=== PATIENT | male | born 1975 | race Caucasian/White ===

== ENCOUNTER 2018-09-19 20:27 | Emergency (ER) | payer BC, SELFPAY ==
[2018-09-19] VITALS (37 sets, daily range): BP systolic 112–156; BP diastolic 64–107; PULSE 52–88; RESP 0–25; TEMP 37; O2SAT 92–100
[2018-09-19] MEDS: Normal Saline 1,000 ML 1000 ML IV (20:35)
--- NOTE | 2018-09-19 20:37 | DI.CT_ITS ---
SYMPTOM/DIAGNOSIS: FALL, LT FLANK PAIN, SYNCOPE CT CHEST, ABDOMEN AND PELVIS: Routine examination was performed. No priors. CT ABDOMEN AND PELVIS: There is diffuse decreased attenuation of the liver, consistent with hepatic steatosis. No evidence of an hepatic laceration or mass is seen. The portal and superior mesenteric veins are patent The gallbladder is negative as are the bile ducts. The pancreas, spleen and adrenal glands are unremarkable. The kidneys show normal and symmetric enhancement. No solid renal mass, obstruction or laceration is seen. The ureters are unremarkable as is the urinary bladder. The reproductive organs are grossly unremarkable. The abdominal aorta is intact. No retroperitoneal hematoma is seen. Incidental note is made of a circumaortic left renal vein. No significant abdominal or pelvic adenopathy, ascites or pneumoperitoneum is seen. The bowel is unremarkable. No fracture is identified. There is a 9 x 3.5 x 10 cm subcutaneous soft tissue hematoma overlying the left gluteal muscles. There is infiltration of the surrounding subcutaneous tissues in the left gluteal region. IMPRESSION: 1. Soft tissue hematoma in the subcutaneous region overlying the left gluteal muscles measuring up to 10 cm in diameter with surrounding subcutaneous edema. 2. No evidence of abdominal or pelvic organ injury or fracture. CT CHEST: The thoracic aorta is intact and normal in size. Heart size is within normal limits No pericardial effusion seen. No significant mediastinal or hilar adenopathy is present. No pleural effusion or pneumothorax is identified. The tracheobronchial tree is unremarkable. The lungs are clear. No displaced fracture is identified. IMPRESSION: No evidence of thoracic injury.
--- NOTE | 2018-09-19 20:37 | DI.CT_ITS ---
SYMPTOM/DIAGNOSIS: FALL, LT FLANK PAIN, SYNCOPE CT BRAIN: Noncontrast. No priors. A noncontrast cranial CT was performed. The ventricular system is normal in appearance. There is no evidence of an intracranial mass lesion. There is no evidence of a subdural or epidural hematoma. No focal areas of decreased attenuation are seen. CONCLUSION: Normal noncontrast Cranial CT. CT CERVICAL SPINE: Multiple contiguous axial images of the cervical spine were obtained. Sagittal and coronal reformatted images were evaluated on the [employer] workstation. There are no priors for comparison. There is normal alignment. No acute fractures or subluxations are seen. The pre-vertebral soft tissues are unremarkable. IMPRESSION: No acute fracture or subluxation of the cervical spine.
--- NOTE | 2018-09-19 20:39 | W.ED.GENAD ---
Discharge Plan Disposition Patient Disposition: HOME Condition: Improving Discharge Details Chief Complaint: Trauma Clinical Impression: Traumatic hematoma of buttock Reason For Visit: JUNIOR Primary Care Provider: V[facility] ED Provider: Luther Garcia Home Meds and New Rx's Prescriptions: No Action No Known Home Meds RF: 0 Discharge Instructions Instructions: Hematoma (ED) Additional Instructions: We will ask our care management team to assist in making of a follow-up appointment in surgery clinic as we discussed. Please return for any acute concerns. May apply ice to reduce pain and swelling. Tylenol as needed for pain. Medical Decision Making 43-year-old male presents with fall down 4 stairs earlier in the day and resultant left flank pain. He separately had a syncopal episode after a school event this evening. He arrives mildly diaphoretic and pale in appearance. His vital signs are normal. He has a palpable mass in his left gluteus muscle. Differential diagnosis includes arrhythmia, ACS, visceral injury and or internal bleeding. Patient was placed on a equipment monitor phototypesetting, IV access established, given fluid bolus, referred for laboratory testing and CT images. Laboratories are reassuring, notable for stress demargination of the white blood cell count. CT is without significant finding with the exception of left gluteus muscle 5 x 5 x 9 cm hematoma without active extravasation. Patient observed and repeat CBC and troponin obtained. Hematocrit stable and consistent with mild dilution due to administered fluids. Patient stable for discharge home. Will refer him to surgery clinic for follow-up. Did discuss with he and his the risk of the development of myositis ossificans. He may require physical therapy to ensure complete resolution of his gluteal hematoma. Lab Data Lab results reviewed: Yes I reviewed the patient's lab results. Laboratory Results - last 24 hr 09/19/18 09/19/18 09/19/18 20:40 20:40 21:06 WBC 14.33 H RBC 4.58 Hgb 13.8 Hct 39.8 L MCV 86.9 MCH 30.1 MCHC 34.7 RDW 13.0 Plt Count 261 MPV 9.9 Immature Gran % 0.4 Neutrophils % 71.9 Lymphocytes % 18.6 Monocytes % 8.0 Eosinophils % 0.8 Basophils % 0.3 Absolute Neutrophils 10.30 H Absolute Lymphocytes 2.67 Absolute Monocytes 1.15 H Absolute Eosinophils 0.11 Absolute Basophils 0.04 Sodium 140 Potassium 3.5 Chloride 104 Carbon Dioxide 28.4 Anion Gap 7.6 BUN 25 H Creatinine 0.96 Estimated GFR/1.73 m2 >= 60.00 Glucose 118 H Calcium 8.6 Total Bilirubin 0.4 AST 29 ALT 67 Alkaline Phosphatase 48 Troponin I < 0.02 Total Protein 6.8 Albumin 3.7 Patient ABO/Rh AB Positive Antibody Screen Negative ECG Data Interpretation: Normal sinus rhythm, rate approximately 60+. Narrow QRS. No ST segment elevation HPI General Mode of arrival: EMS. Date/Time Provider Initiated Documentation: 09/19/18 20:37. Limitations to Documentation: no limitations. Information obtained by: patient and EMS. History of Present Illness 43 year old M presents to the emergency department with the chief complaint of Left flank pain after fall, subsequent syncope, described as moderate, Quality is described as aching, and is localized to the abdomen and left. Patient reports no radiation. and it has been now resolved. No relieving factors improve symptom(s), No exacerbating factors reported . Patient notes syncope. HPI Narrative: 43-year-old male presents via EMS. He states that earlier today he slipped and fell on his left flank down 4 stairs. He did not have a loss of consciousness. He denies striking his head. Denies having any neck, back, extremity injury. He states he developed dull, achy left flank pain that was fairly constant through the day. After a school meeting he had abrupt episode of feeling graying of his vision and then syncope with diaphoresis and nausea. He was given an antiemetic and fentanyl by EMS with improvement. He arrives states to me that he is feeling better. Related Data Home Medications Medication Instructions Recorded Confirmed Unknown [No Known Home Meds] 09/19/18 09/19/18 Allergies Allergy/AdvReac Type Severity Reaction Status Date / Time No Known Allergies Allergy Unverified 09/19/18 20:40 General Stated Complaint: Trauma JUWAN: 2 Review of Systems Review of Systems 8 systems reviewed and otherwise negative [facility] Social History Smoking/Tobacco Use Status: Never Exam Narrative Exam Narrative: GEN: awake, alert, oriented 3. Pleasant, well groomed, interactive. HEAD: Normocephalic, atraumatic ENT: Mucous membranes moist, oropharynx unremarkable, External ear exam unremarkable EYES: PERRL, EOMI NECK: Full ROM, no CARINA, no menigismus CHEST/RESP: Nontender, clear to auscultation bilateral, no wheeze/rhonchi/rales CARDIOVASCULAR: RRR, no murmur, rub mariposa. 2+ Rad pulse bilateral ABDOMEN: Soft, nontender, no mass. +Bowel sounds. Minimal tenderness left flank. The left gluteal muscle has a approximately 5 x 10 cm area of firm and tender mass EXT: Full ROM, no edema, no rash Neuro: Grossly normal neurologic exam, conversant, interactive. Psych: Speech fluent, thoughts congruent, affect normal Course Vital Signs Temperature 37.0 C 09/19/18 20:34 Pulse 66 09/19/18 20:34 Respiratory Rate 24 09/19/18 20:34 Blood Pressure 143/87 H 09/19/18 20:34 Pulse Oximetry 96 09/19/18 20:34 Temperature 37.0 C 09/19/18 20:34 Temperature Source Tympanic 09/19/18 20:34 Pulse 66 09/19/18 20:34 Respiratory Rate 24 09/19/18 20:34 Respiratory Effort Non-Labored 09/19/18 20:37 Blood Pressure 143/87 H 09/19/18 20:34 Blood Pressure Position Sitting 09/19/18 20:34 Pulse Oximetry 96 09/19/18 20:34 Oxygen Delivery Method Room Air 09/19/18 20:34 Oxygen Flow Rate 0 09/19/18 20:34 Pain Level 5 09/19/18 20:34
--- NOTE | 2018-09-19 20:42 | ED.GENADUL_ITS ---
Discharge Plan Disposition Patient Disposition: HOME Condition: Improving Discharge Details Chief Complaint: Trauma Clinical Impression: Traumatic hematoma of buttock Reason For Visit: JUNIOR Primary Care Provider: V[facility] ED Provider: Luther Garcia Home Meds and New Rx's Prescriptions: No Action No Known Home Meds RF: 0 Discharge Instructions Instructions: Hematoma (ED) Additional Instructions: We will ask our care management team to assist in making of a follow-up appointment in surgery clinic as we discussed. Please return for any acute concerns. May apply ice to reduce pain and swelling. Tylenol as needed for pain. Medical Decision Making 43-year-old male presents with fall down 4 stairs earlier in the day and resultant left flank pain. He separately had a syncopal episode after a school event this evening. He arrives mildly diaphoretic and pale in appearance. His vital signs are normal. He has a palpable mass in his left gluteus muscle. Differential diagnosis includes arrhythmia, ACS, visceral injury and or internal bleeding. Patient was placed on a classroom monitor, IV access established, given fluid bolus, referred for laboratory testing and CT images. Laboratories are reassuring, notable for stress demargination of the white blood cell count. CT is without significant finding with the exception of left gluteus muscle 5 x 5 x 9 cm hematoma without active extravasation. Patient observed and repeat CBC and troponin obtained. Hematocrit stable and consistent with mild dilution due to administered fluids. Patient stable for discharge home. Will refer him to surgery clinic for follow-up. Did discuss with he and his the risk of the development of myositis ossificans. He may require physical therapy to ensure complete resolution of his gluteal hematoma. Lab Data Lab results reviewed: Yes I reviewed the patient's lab results. Laboratory Results - last 24 hr 09/19/18 09/19/18 09/19/18 20:40 20:40 21:06 WBC 14.33 H RBC 4.58 Hgb 13.8 Hct 39.8 L MCV 86.9 MCH 30.1 MCHC 34.7 RDW 13.0 Plt Count 261 MPV 9.9 Immature Gran % 0.4 Neutrophils % 71.9 Lymphocytes % 18.6 Monocytes % 8.0 Eosinophils % 0.8 Basophils % 0.3 Absolute Neutrophils 10.30 H Absolute Lymphocytes 2.67 Absolute Monocytes 1.15 H Absolute Eosinophils 0.11 Absolute Basophils 0.04 Sodium 140 Potassium 3.5 Chloride 104 Carbon Dioxide 28.4 Anion Gap 7.6 BUN 25 H Creatinine 0.96 Estimated GFR/1.73 m2 >= 60.00 Glucose 118 H Calcium 8.6 Total Bilirubin 0.4 AST 29 ALT 67 Alkaline Phosphatase 48 Troponin I < 0.02 Total Protein 6.8 Albumin 3.7 Patient ABO/Rh AB Positive Antibody Screen Negative ECG Data Interpretation: Normal sinus rhythm, rate approximately 60+. Narrow QRS. No ST segment elevation HPI General Mode of arrival: EMS . Date/Time Provider Initiated Documentation: 09/19/18 20:37 . Limitations to Documentation: no limitations . Information obtained by: patient and EMS . History of Present Illness 43 year old M presents to the emergency department with the chief complaint of Left flank pain after fall, subsequent syncope, described as moderate, Quality is described as aching, and is localized to the abdomen and left. Patient reports no radiation. and it has been now resolved. No relieving factors improve symptom(s), No exacerbating factors reported . Patient notes syncope. HPI Narrative: 43-year-old male presents via EMS. He states that earlier today he slipped and fell on his left flank down 4 stairs. He did not have a loss of consciousness. He denies striking his head. Denies having any neck, back, extremity injury. He states he developed dull, achy left flank pain that was fairly constant through the day. After a school meeting he had abrupt episode of feeling graying of his vision and then syncope with diaphoresis and nausea. He was given an antiemetic and fentanyl by EMS with improvement. He arrives states to me that he is feeling better. Related Data Home Medications Medication Instructions Recorded Confirmed Unknown [No Known Home Meds] 09/19/18 09/19/18 Allergies Allergy/AdvReac Type Severity Reaction Status Date / Time No Known Allergies Allergy Unverified 09/19/18 20:40 General Stated Complaint: Trauma JUWAN: 2 Review of Systems Review of Systems 8 systems reviewed and otherwise negative [facility] Social History Smoking/Tobacco Use Status: Never Exam Narrative Exam Narrative: GEN: awake, alert, oriented 3. Pleasant, well groomed, interactive. HEAD: Normocephalic, atraumatic ENT: Mucous membranes moist, oropharynx unremarkable, External ear exam unremarkable EYES: PERRL, EOMI NECK: Full ROM, no CARINA, no menigismus CHEST/RESP: Nontender, clear to auscultation bilateral, no wheeze/rhonchi/rales CARDIOVASCULAR: RRR, no murmur, rub mariposa. 2+ Rad pulse bilateral ABDOMEN: Soft, nontender, no mass. +Bowel sounds. Minimal tenderness left flank. The left gluteal muscle has a approximately 5 x 10 cm area of firm and tender mass EXT: Full ROM, no edema, no rash Neuro: Grossly normal neurologic exam, conversant, interactive. Psych: Speech fluent, thoughts congruent, affect normal Course Vital Signs Temperature 37.0 C 09/19/18 20:34 Pulse 66 09/19/18 20:34 Respiratory Rate 24 09/19/18 20:34 Blood Pressure 143/87 H 09/19/18 20:34 Pulse Oximetry 96 09/19/18 20:34 Temperature 37.0 C 09/19/18 20:34 Temperature Source Tympanic 09/19/18 20:34 Pulse 66 09/19/18 20:34 Respiratory Rate 24 09/19/18 20:34 Respiratory Effort Non-Labored 09/19/18 20:37 Blood Pressure 143/87 H 09/19/18 20:34 Blood Pressure Position Sitting 09/19/18 20:34 Pulse Oximetry 96 09/19/18 20:34 Oxygen Delivery Method Room Air 09/19/18 20:34 Oxygen Flow Rate 0 09/19/18 20:34 Pain Level 5 09/19/18 20:34
[2018-09-19 20:51] LABS: Abs Immature Grans 0.06 k/cumm (0.0-0.09); Absolute Basophil Count 0.04 k/cumm (0.0-0.2); Absolute Eosinophil Count 0.11 k/cumm (0.0-0.7); Absolute Lymphocyte Count 2.67 k/cumm (1.2-3.4); Absolute Monocyte Count 1.15 k/cumm (0.11-0.7); Basophils % 0.3; Eosinophils % 0.8; HCT 39.8 % (40.0-50.0); HGB 13.8 g/dL (13.5-17.5); Immature Grans % 0.4; Lymphocytes % 18.6; Mean Corp. HGB Concentration 34.7 g/dL (32.0-36.0); Mean Corpuscular Hemoglobin 30.1 pg (27.0-33.0); Mean Corpuscular Volume 86.9 fL (80-95); Mean Platelet Volume 9.9 fL (8.0-11.0); Neutrophils % 71.9; Platelet Count 261 x1000/uL (130-400); RBC 4.58 m/cumm (4.50-6.00); White Blood Cell Count 14.33 k/cumm (4.4-10.8)
[2018-09-19 21:04] LABS: ALT 67 U/L (12-78); AST 29 U/L (15-37); Albumin 3.7 g/dL (3.4-5.0); Alkaline Phosphatase 48 U/L (46-116); Anion Gap 7.6 mmol/L (3-11); BUN 25 mg/dL (7-18); Bilirubin, Total 0.4 mg/dL (0.2-1.0); CO2 28.4 mmol/L (21.0-32.0); CREATININE 0.96 mg/dL (0.70-1.30); Calcium 8.6 mg/dL (8.5-10.1); Chloride 104 mmol/L (98-107); Glucose 118 mg/dL (70-100); Potassium 3.5 mmol/L (3.5-5.1); Sodium 140 mmol/L (136-145); Total Protein 6.8 g/dL (6.4-8.2); Troponin I < 0.02 ng/mL (0.00-0.06)
[2018-09-19] MEDS: Omnipaque 350 MG/ML 100 ML BTL IJ (21:11)
--- NOTE | 2018-09-19 22:08 | DI.VRAD_ITS ---
EXAM: CT Head Without Intravenous Contrast EXAM DATE/TIME: 09/19/2018 8:39 PM CLINICAL HISTORY: 43 years old, male; Injury or trauma; Fall; Initial encounter; Unconscious; Injury details: Fall lt flank pain syncope TECHNIQUE: Axial computed tomography images of the head/brain without intravenous contrast. All CT scans at this facility use at least one of these dose optimization techniques: automated exposure control; mA and/or kV adjustment per patient size (includes targeted exams where dose is matched to clinical indication); or iterative reconstruction. Coronal and sagittal reformatted images were created and reviewed. COMPARISON: No relevant prior studies available. FINDINGS: Brain: Normal. No hemorrhage. No significant white matter disease. No edema. Ventricles: Normal. No ventriculomegaly. Bones/joints: Normal. No acute fracture. Sinuses: Normal as visualized. No acute sinusitis. Mastoid air cells: Normal as visualized. No mastoid effusion. Soft tissues: Normal. IMPRESSION: No acute intracranial findings. EXAM: CT Cervical Spine Without Intravenous Contrast EXAM DATE/TIME: 09/19/2018 8:39 PM CLINICAL HISTORY: 43 years old, male; Injury or trauma; Fall; Initial encounter; Unconscious; Injury details: Fall lt flank pain syncope TECHNIQUE: Axial computed tomography images of the cervical spine without intravenous contrast. Coronal and sagittal reformatted images were created and reviewed. COMPARISON: No relevant prior studies available. FINDINGS: Vertebrae: No acute fracture. Normal alignment. Discs/Spinal canal/Neural foramina: No spinal stenosis. No neural foraminal narrowing. Soft tissues: Unremarkable. Lungs: Lung apices are normal. IMPRESSION: No acute fracture or malalignment in the cervical spine. Dictated and Authenticated by: Pat Ricardo MD. Ordering:ELENITA INGRAM MD
--- NOTE | 2018-09-19 22:22 | DI.VRAD_ITS ---
EXAM: CT Chest With Contrast EXAM DATE/TIME: 09/19/2018 8:39 PM CLINICAL HISTORY: 43 years old, male; Injury or trauma; Fall; Initial encounter; Unconscious TECHNIQUE: Axial computed tomography images of the chest with intravenous contrast. Coronal and sagittal reformatted images were created and reviewed. COMPARISON: No relevant prior studies available. FINDINGS: Lungs: Normal. No consolidation. No masses. Pleural space: Normal. No pneumothorax. No pleural effusion. Heart: Normal. No cardiomegaly. No pericardial effusion. Mediastinum: Trace soft tissue in anterior mediastinum, most likely represents residual thymic tissue. Aorta: Normal. No aortic aneurysm. Lymph nodes: Unremarkable. No enlarged lymph nodes. Bones/joints: Unremarkable. No acute fracture. Soft tissues: Unremarkable. IMPRESSION: No acute traumatic findings in the chest. EXAM: CT Abdomen and Pelvis With Intravenous Contrast EXAM DATE/TIME: 09/19/2018 8:39 PM CLINICAL HISTORY: 43 years old, male; Injury or trauma; Fall; Initial encounter; Unconscious TECHNIQUE: Axial computed tomography images of the abdomen and pelvis with intravenous contrast. Coronal and sagittal reformatted images were created and reviewed. CONTRAST: 100 ml of omni 350 administered intravenously. COMPARISON: No relevant prior studies available. FINDINGS: Lower thorax: No acute findings. ABDOMEN: Liver: Diffusely low attenuation of the liver with sparing around the gallbladder fossa in keeping with hepatic steatosis. Gallbladder and bile ducts: Normal. No calcified stones. No ductal dilation. Pancreas: Normal. No ductal dilation. Spleen: Normal. No splenomegaly. Adrenals: Normal. No mass. Kidneys and ureters: Normal. No hydronephrosis. Stomach and bowel: Mild diverticulosis without evidence of acute diverticulitis. Appendix: No evidence of appendicitis. PELVIS: Bladder: Unremarkable as visualized. Reproductive: Coarse calcifications within the prostate gland. ABDOMEN and PELVIS: Intraperitoneal space: Normal. No free air. No significant fluid collection. Bones/joints: No acute fracture. No dislocation. Soft tissues: There is infiltration of the left gluteal soft tissues in keeping with contusion in the setting of trauma. In addition, there is a subcutaneous soft tissue hematoma overlying the left gluteal muscles (series 7 image 100) measuring 9.1 x 3.5 x 9.7 cm. No evidence of active extravasation, noting that the timing of the study is not optimized to evaluate for active bleeding. Vasculature: Normal. No abdominal aortic aneurysm. Lymph nodes: Normal. No enlarged lymph nodes. IMPRESSION: 1. Hematoma in the left gluteal superficial soft tissues measuring up to 9.7 cm in greatest diameter with surrounding contusion/edema. No evidence of intra-abdominal traumatic injury. 2. Hepatic steatosis. Dictated and Authenticated by: Pat Ricardo MD. Ordering:ELENITA INGRAM MD
[2018-09-19] MEDS: Acetaminophen 500 MG TAB 1000 MG PO (22:34)
[2018-09-20] VITALS (7 sets, daily range): BP systolic 110–117; BP diastolic 60; PULSE 51–65; RESP 7–16; TEMP 36.4; O2SAT 93–97
[2018-09-20 00:27] LABS: HCT 36.2 % (40.0-50.0); HGB 12.7 g/dL (13.5-17.5); Mean Corp. HGB Concentration 35.1 g/dL (32.0-36.0); Mean Corpuscular Hemoglobin 30.5 pg (27.0-33.0); Mean Corpuscular Volume 86.8 fL (80-95); Mean Platelet Volume 9.6 fL (8.0-11.0); Platelet Count 224 x1000/uL (130-400); RBC 4.17 m/cumm (4.50-6.00); RBC Distribution Width 12.9 % (11.8-14.1); White Blood Cell Count 10.48 k/cumm (4.4-10.8)
[2018-09-20 00:43] LABS: Troponin I < 0.02 ng/mL (0.00-0.06)
== END 2018-09-20 01:09 | disposition home or self-care (01) ==
PROVIDERS: Emergency Provider Emergency Medicine; PCP Nurse Practitioner Adult Health
DX: S30.0XXA Contusion of lower back and pelvis, initial encounter (principal); R10.32 Left lower quadrant pain; R55 Syncope and collapse; W10.8XXA Fall (on) (from) other stairs and steps, initial encounter
CPT/HCPCS: 36415; 74177; 80053; 85027; 86850; 86900; 86901; 93005; 96360; 99285; 70450; 71260; 72125; 84484; 85025; 93010; 99284; J3490

== ENCOUNTER 2018-09-21 09:36 | Emergency (ER) | payer BC, SELFPAY ==
[2018-09-21 09:43] VITALS: BP 140/83; PULSE 65; RESP 16; TEMP 37.2; O2SAT 99
--- NOTE | 2018-09-21 10:07 | W.ED.GENAD ---
Discharge Plan Disposition Patient Disposition: HOME Condition: Improving Discharge Details Chief Complaint: Abd Prob Clinical Impression: Hematoma Primary Care Provider: Anisha Zepeda ED Provider: Johnathan Serrano Home Meds and New Rx's Prescriptions: New diclofenac potassium 50 mg tablet 50 mg PO Q8H PRN (Reason: pain) Qty: 10 RF: 0 Discharge Instructions Instructions: Hematoma (ED) Additional Instructions: Due to medication he received in the emergency department please do not take prescribed medication or ibuprofen and until 6 PM this evening. You may continue to take acetaminophen in this time as needed for discomfort. You may also apply ice to the area of bruising. Please return immediately for any new or significant change in your condition otherwise follow-up with general surgeon as scheduled for tomorrow. Referrals: Paulo Neal DO [ [facility] STAFF PHYSICIAN] - (As scheduled for tomorrow) Discharge Data Discharge Date/Time-TO BE ENTERED AT DEPARTURE: 09/21/18 11:41 Medical Decision Making Patient presenting to the emergency department for chief complaint of left flank pain and bruising. Patient states fall 2 days ago on stairs landing on his left hip and having some bruising. Couple hours afterwards he had a syncopal episode. Patient presented to the emergency department and had full evaluation and noted a significant hematoma otherwise negative workup. Patient significant other has noticed some spreading of the bruising today and called the surgeon's office whom recommended they immediately present to the emergency department. Patient states some mild malaise and nausea that he attributes to possible pain response but otherwise denies any further episodes of syncope. Patient denies any fever chills, change in bowel or bladder function, states normal p.o. intake, denies any further falls. Physical exam does show significant hematoma to left iliac crest and hip with some ecchymosis noted to buttock and upper thigh but otherwise abdomen is soft, only tenderness in the general area of hematoma, no CVA tenderness, normal bowel sounds. seems significantly concerned due to being told they had to come immediately to the emergency department by surgeon's office nursing staff. Patient is otherwise well and I feel that the spreading of the hematoma/ecchymosis is more due to gravity than any worsening of symptoms given fairly benign physical exam. Plan noted check labs and give ketorolac for pain control and see how patient responds. Will review patient's previous records. After review of previous medical records, current labs that show improvement in H&H, and no other worrisome findings laboratory [place] patient was reassessed. Patient states improvement in discomfort and overall feeling. I did show patient CT image and area of hematoma which is consistent with his area of ecchymosis. After this patient was significantly reassured and given soft abdomen with no splenic megaly, no CVA tenderness, no worrisome findings patient was agreeable to not performing repeat CT imaging which I do not feel is warranted at this time. Patient does state that they have an appointment scheduled for tomorrow to follow-up with Dr. Sal given size of hematoma and previous recommendation. I feel that this is reassuring and that patient needs no further workup at this time. Patient was strongly encouraged to return for any new or significant worsening of symptoms. Due to ketorolac improving patient's pain and overall symptoms better than the acetaminophen is taken patient was prescribed limited supply of diclofenac to take as needed. After discussion of diagnosis and plan of care patient has no further needs, questions, or concerns and states clear understanding to return to the emergency department for any worsening symptoms. Spoke with Dr. Sal in regards to patient's follow-up appointment tomorrow and he had no further recommendations and agreed with plan of care at this time. HPI General Mode of arrival: ambulatory. Date/Time Provider Initiated Documentation: 09/21/18 09:43. Limitations to Documentation: no limitations. Information obtained by: patient and RN notes reviewed. History of Present Illness 43 year old M presents to the emergency department with the chief complaint of Left flank pain, described as moderate, with intensity rated at 7. Quality is described as aching, and is localized to the abdomen and left. Patient started experiencing this day(s) (2) and it has been constant. No relieving factors improve symptom(s), Patient did receive the following treatments prior to arrival, other (Acetaminophen) Related Data Home Medications Medication Instructions Recorded Confirmed diclofenac potassium 50 mg PO Q8H PRN #10 tab 09/21/18 Previous Rx's Medication Instructions Recorded diclofenac potassium 50 mg PO Q8H PRN #10 tab 09/21/18 Allergies Allergy/AdvReac Type Severity Reaction Status Date / Time No Known Allergies Allergy Unverified 09/21/18 09:49 General Stated Complaint: Abd Prob JUWAN: 3 Review of Systems Constitutional Denies chills, Denies fever(s), Denies frequent falls and Reports malaise Cardiovascular Denies chest pain, Denies irregular heart rhythm and Denies dyspnea Respiratory Denies dyspnea Gastrointestinal Reports abdominal pain, Denies change in bowel habits, Denies constipation, Denies diarrhea, Reports nausea and Denies vomiting Genitourinary Denies hematuria, Denies difficulty urinating and Denies dysuria Integumentary/Breasts Reports unusual bruising Neurologic Denies frequent falls and Denies seizure-like activity [facility] Social History Smoking/Tobacco Use Status: Never Exam Const General: cooperative, no acute distress and not ill appearing Orientation: alert, awake and oriented x3 HENMT Mouth: moist mucous membranes Resp Effort & Inspection: normal respiratory effort, able to speak in complete sentences and no respiratory distress Cardio Rate: regular rate Rhythm: regular rhythm Heart Sounds: S1 normal and S2 normal GI Inspection: abdominal wall ecchymosis (left flank and hip) Palpation: soft, no hepatosplenomegaly, not firm, no masses, no pulsatile masses, not rigid, no splenomegaly and tender in the LLQ; not at McBurney's point, Herron's sign negative and Rovsing's sign negative Auscultation: normal bowel sounds Back/Spine/Pelvis Back: no CVA tenderness and No ecchymosis Skin General skin exam: no rashes or lesions noted Neuro General: alert, awake, oriented x3, moves all extremities and no focal motor deficits Sensory Exam: no sensory deficits noted Course Vital Signs Temperature 37.2 C 09/21/18 09:43 Pulse 65 09/21/18 09:43 Respiratory Rate 16 09/21/18 09:43 Blood Pressure 140/83 09/21/18 09:43 Pulse Oximetry 99 09/21/18 09:43 Temperature 37.2 C 09/21/18 09:43 Temperature Source Skin 09/21/18 09:43 Pulse 65 09/21/18 09:43 Respiratory Rate 16 09/21/18 09:43 Respiratory Effort 09/21/18 09:43 Blood Pressure 140/83 09/21/18 09:43 Blood Pressure Position Sitting 09/21/18 09:43 Pulse Oximetry 99 09/21/18 09:43 Oxygen Delivery Method Room Air 09/21/18 09:43 Oxygen Flow Rate 0 09/21/18 09:43 Pain Level 7 09/21/18 09:43
--- NOTE | 2018-09-21 10:15 | ED.GENADUL_ITS ---
Discharge Plan Disposition Patient Disposition: HOME Condition: Improving Discharge Details Chief Complaint: Abd Prob Clinical Impression: Hematoma Primary Care Provider: Anisha Zepeda ED Provider: Johnathan Serrano Home Meds and New Rx's Prescriptions: New diclofenac potassium 50 mg tablet 50 mg PO Q8H PRN (Reason: pain) Qty: 10 RF: 0 Discharge Instructions Instructions: Hematoma (ED) Additional Instructions: Due to medication he received in the emergency department please do not take prescribed medication or ibuprofen and until 6 PM this evening. You may continue to take acetaminophen in this time as needed for discomfort. You may also apply ice to the area of bruising. Please return immediately for any new or significant change in your condition otherwise follow-up with general surgeon as scheduled for tomorrow. Referrals: Paulo Neal DO [ [facility] STAFF PHYSICIAN] - (As scheduled for tomorrow) Discharge Data Discharge Date/Time-TO BE ENTERED AT DEPARTURE: 09/21/18 11:41 Medical Decision Making Patient presenting to the emergency department for chief complaint of left flank pain and bruising. Patient states fall 2 days ago on stairs landing on his left hip and having some bruising. Couple hours afterwards he had a syncopal episode. Patient presented to the emergency department and had full evaluation and noted a significant hematoma otherwise negative workup. Patient significant other has noticed some spreading of the bruising today and called the surgeon's office whom recommended they immediately present to the emergency department. Patient states some mild malaise and nausea that he attributes to possible pain response but otherwise denies any further episodes of syncope. Patient denies any fever chills, change in bowel or bladder function, states normal p.o. intake, denies any further falls. Physical exam does show significant hematoma to left iliac crest and hip with some ecchymosis noted to buttock and upper thigh but otherwise abdomen is soft, only tenderness in the general area of hematoma, no CVA tenderness, normal bowel sounds. seems significantly concerned due to being told they had to come immediately to the emergency department by surgeon's office nursing staff. Patient is otherwise well and I feel that the spreading of the hematoma/ecchymosis is more due to gravity than any worsening of symptoms given fairly benign physical exam. Plan noted check labs and give ketorolac for pain control and see how patient responds. Will review patient's previous records. After review of previous medical records, current labs that show improvement in H&H, and no other worrisome findings laboratory [place] patient was reassessed. Patient states improvement in discomfort and overall feeling. I did show patient CT image and area of hematoma which is consistent with his area of ecchymosis. After this patient was significantly reassured and given soft abdomen with no splenic megaly, no CVA tenderness, no worrisome findings patient was agreeable to not performing repeat CT imaging which I do not feel is warranted at this time. Patient does state that they have an appointment scheduled for tomorrow to follow-up with Dr. Sal given size of hematoma and previous recommendation. I feel that this is reassuring and that patient needs no further workup at this time. Patient was strongly encouraged to return for any new or significant worsening of symptoms. Due to ketorolac improving patient's pain and overall symptoms better than the acetaminophen is taken patient was prescribed limited supply of diclofenac to take as needed. After discussion of diagnosis and plan of care patient has no further needs, questions , or concerns and states clear understanding to return to the emergency department for any worsening symptoms. Spoke with Dr. Sal in regards to patient's follow-up appointment tomorrow and he had no further recommendations and agreed with plan of care at this time. HPI General Mode of arrival: ambulatory . Date/Time Provider Initiated Documentation: 09/21/18 09:43 . Limitations to Documentation: no limitations . Information obtained by: patient and RN notes reviewed . History of Present Illness 43 year old M presents to the emergency department with the chief complaint of Left flank pain, described as moderate, with intensity rated at 7. Quality is described as aching, and is localized to the abdomen and left. Patient started experiencing this day(s) (2) and it has been constant. No relieving factors improve symptom(s), Patient did receive the following treatments prior to arrival, other (Acetaminophen) Related Data Home Medications Medication Instructions Recorded Confirmed diclofenac potassium 50 mg PO Q8H PRN #10 tab 09/21/18 Previous Rx's Medication Instructions Recorded diclofenac potassium 50 mg PO Q8H PRN #10 tab 09/21/18 Allergies Allergy/AdvReac Type Severity Reaction Status Date / Time No Known Allergies Allergy Unverified 09/21/18 09:49 General Stated Complaint: Abd Prob JUWAN: 3 Review of Systems Constitutional Denies chills, Denies fever(s), Denies frequent falls and Reports malaise Cardiovascular Denies chest pain, Denies irregular heart rhythm and Denies dyspnea Respiratory Denies dyspnea Gastrointestinal Reports abdominal pain, Denies change in bowel habits, Denies constipation, Denies diarrhea, Reports nausea and Denies vomiting Genitourinary Denies hematuria, Denies difficulty urinating and Denies dysuria Integumentary/Breasts Reports unusual bruising Neurologic Denies frequent falls and Denies seizure-like activity [facility] Social History Smoking/Tobacco Use Status: Never Exam Const General: cooperative, no acute distress and not ill appearing Orientation: alert, awake and oriented x3 HENMT Mouth: moist mucous membranes Resp Effort & Inspection: normal respiratory effort, able to speak in complete sentences and no respiratory distress Cardio Rate: regular rate Rhythm: regular rhythm Heart Sounds: S1 normal and S2 normal GI Inspection: abdominal wall ecchymosis (left flank and hip) Palpation: soft, no hepatosplenomegaly, not firm, no masses, no pulsatile masses , not rigid, no splenomegaly and tender in the LLQ; not at McBurney's point, Herron's sign negative and Rovsing's sign negative Auscultation: normal bowel sounds Back/Spine/Pelvis Back: no CVA tenderness and No ecchymosis Skin General skin exam: no rashes or lesions noted Neuro General: alert, awake, oriented x3, moves all extremities and no focal motor deficits Sensory Exam: no sensory deficits noted Course Vital Signs Temperature 37.2 C 09/21/18 09:43 Pulse 65 09/21/18 09:43 Respiratory Rate 16 09/21/18 09:43 Blood Pressure 140/83 09/21/18 09:43 Pulse Oximetry 99 09/21/18 09:43 Temperature 37.2 C 09/21/18 09:43 Temperature Source Skin 09/21/18 09:43 Pulse 65 09/21/18 09:43 Respiratory Rate 16 09/21/18 09:43 Respiratory Effort 09/21/18 09:43 Blood Pressure 140/83 09/21/18 09:43 Blood Pressure Position Sitting 09/21/18 09:43 Pulse Oximetry 99 09/21/18 09:43 Oxygen Delivery Method Room Air 09/21/18 09:43 Oxygen Flow Rate 0 09/21/18 09:43 Pain Level 7 09/21/18 09:43
[2018-09-21] MEDS: Ketorolac 15 MG/ML VIAL IVP (10:17)
[2018-09-21 10:26] LABS: Abs Immature Grans 0.03 k/cumm (0.0-0.09); Absolute Basophil Count 0.04 k/cumm (0.0-0.2); Absolute Eosinophil Count 0.12 k/cumm (0.0-0.7); Absolute Lymphocyte Count 1.74 k/cumm (1.2-3.4); Absolute Monocyte Count 0.63 k/cumm (0.11-0.7); Absolute Neutrophil Count 4.56 k/cumm (1.2-6.7); Basophils % 0.6; Eosinophils % 1.7; HCT 38.1 % (40.0-50.0); HGB 13.3 g/dL (13.5-17.5); Immature Grans % 0.4; Lymphocytes % 24.4; Mean Corp. HGB Concentration 34.9 g/dL (32.0-36.0); Mean Corpuscular Hemoglobin 30.3 pg (27.0-33.0); Mean Corpuscular Volume 86.8 fL (80-95); Monocytes % 8.8; Neutrophils % 64.1; Platelet Count 238 x1000/uL (130-400); RBC 4.39 m/cumm (4.50-6.00); RBC Distribution Width 12.9 % (11.8-14.1); White Blood Cell Count 7.12 k/cumm (4.4-10.8)
[2018-09-21 10:47] LABS: ALT 58 U/L (12-78); AST 26 U/L (15-37); Albumin 3.4 g/dL (3.4-5.0); Alkaline Phosphatase 48 U/L (46-116); Anion Gap 5.6 mmol/L (3-11); BUN 13 mg/dL (7-18); Bilirubin, Total 0.5 mg/dL (0.2-1.0); CO2 30.4 mmol/L (21.0-32.0); CREATININE 0.89 mg/dL (0.70-1.30); Calcium 8.6 mg/dL (8.5-10.1); Chloride 103 mmol/L (98-107); Glucose 114 mg/dL (70-100); Potassium 3.6 mmol/L (3.5-5.1); Sodium 139 mmol/L (136-145); Total Protein 6.8 g/dL (6.4-8.2)
[2018-09-21 11:40] VITALS: BP 122/75; PULSE 67; RESP 16; TEMP 37.2; O2SAT 98
== END 2018-09-21 11:42 | disposition home or self-care (01) ==
PROVIDERS: Emergency Provider Nurse Practitioner Family; PCP Nurse Practitioner Adult Health
DX: S70.02XA Contusion of left hip, initial encounter (principal); S30.0XXA Contusion of lower back and pelvis, initial encounter; W10.8XXA Fall (on) (from) other stairs and steps, initial encounter
CPT/HCPCS: 36415; 80053; 96374; 99284; 85025; J1885

== ENCOUNTER 2018-09-27 17:21 | Emergency (ER) | payer BC, SELFPAY ==
[2018-09-27 17:27] VITALS: BP 156/95; PULSE 63; RESP 14; TEMP 37.6; O2SAT 98
--- NOTE | 2018-09-27 17:49 | W.ED.GENAD ---
Discharge Plan Disposition Patient Disposition: HOME Condition: Fair Discharge Details Chief Complaint: Nk/Back Pain Clinical Impression: Acute neck pain, Muscle spasm Primary Care Provider: Anisha Zepeda ED Provider: Lisa Ramesh Home Meds and New Rx's Prescriptions: New cyclobenzaprine 10 mg tablet 10 mg PO TID PRN (Reason: muscle spasm) Qty: 10 RF: 0 No Action ibuprofen 200 mg Capsule 200 - 800 mg PO PRN PRNRF: 0 Discharge Instructions Instructions: Muscle Spasm (ED), Neck Pain (ED) Additional Instructions: Encourage hydration. Gentle stretching and frequent ambulation. Tylenol and/or ibuprofen as needed for discomfort. You may try topical agents such as Salonpas or Lidoderm patches to help with discomfort. Flexeril as prescribed to help with muscle spasm. Please follow-up with primary care as soon as possible, please call them tomorrow to schedule appointment. If you develop weakness in your extremities, fever/chills, increased pain, change in bladder or bowel habit, sensory changes in your lower extremities or other new/worsening symptoms please seek care urgently once again. Referrals: Anisha Zepeda [Primary Care Provider] - Discharge Data Discharge Date/Time-TO BE ENTERED AT DEPARTURE: 09/27/18 20:28 Medical Decision Making Patient is a 43-year-old male presenting today with chief complaint of neck pain. Patient was seen here 2 weeks ago after a fall. At that time, the patient had fallen down 4 steps. Came in few hours later after suffering a syncopal episode. Holt scan had been performed at that time. Exam was concerning for hematoma over the left hip. He feels that hematoma has been healing well. Denies any fevers or chills. Has not been physically exerting himself. No trauma since then. States that he had insidious onset of neck pain this afternoon. On exam, the pain seems to be quite lateral, equal bilaterally with associated muscle tension. No midline tenderness. Full range of motion. Spurling's is normal. He is also endorsing tingling in the bilateral hands. However, neuro exam is intact with no objective findings noted. Two-point discrimination is intact, strength is equal bilaterally. Discussed these findings with the patient. He was concerned that this may have been associated with the fall. However, given the length of time that has elapsed since his fall, I am not suspicious for neck injury at this time particularly has had a normal CT of his cervical spine. Will treat patient's pain with Toradol and Valium. Discussed plan with the patient. He denies any recent illness. Vital signs within normal limits. He appears nontoxic Patient reports the pain is improved after Toradol and Valium. However, he reports that the tingling has persisted. Again, no deficit is noted on neuro exam. Discussed case with Dr. Mcgowan. As the patient did have a recent CT, I do not feel that repeat imaging is appropriate particularly as he has not had any injury since then. She agrees to this assessment. Patient may need an outpatient MRI. At this time of the evening, MRI is not available. Without any neurologic deficit noted on exam, I do not feel the transfer of this patient is appropriate at this time. I have asked that he follow-up with his primary care tomorrow. We will augment his pain medication is received thus far with Tylenol. We discussed new/worsening symptoms, in particular neurologic deficits and signs of infection, and when to seek care urgently once again. All of his questions and concerns were addressed and he is in agreement with plan peer Had initially offered the patient something stronger for his discomfort but he declined. However, at the time of discharge, he is requesting stronger medication from nursing staff. Patient will be prescribed oxycodone for tonight. We did discuss risks benefits of this medication. Again, we reviewed narcotic safety usage as well as strict return precautions. All questions and concerns were addressed and he is in agreement this plan. Will contact his primary care provider tomorrow morning to schedule follow-up as soon as possible. [facility] Mode of arrival: ambulatory. Date/Time Provider Initiated Documentation: 09/27/18 17:49. Limitations to Documentation: no limitations. Information obtained by: patient and family. History of Present Illness 43 year old M presents to the emergency department with the chief complaint of Neck pain, described as moderate, with intensity rated at 6. Quality is described as aching, and is localized to the neck. Patient reports no radiation. Patient started experiencing this hour(s) (Began at 1pm) and it has been constant. No relieving factors improve symptom(s), No exacerbating factors reported . Patient notes other; denies chest pain, cough, fever/chills, headaches, loss of appetite, nausea/vomiting, rash and shortness of breath. Patient did receive the following treatments prior to arrival, none Related Data Home Medications Medication Instructions Recorded Confirmed cyclobenzaprine 10 mg PO TID PRN #10 tab 09/27/18 09/28/18 ibuprofen 200 - 800 mg PO PRN PRN 09/28/18 09/28/18 Previous Rx's Medication Instructions Recorded cyclobenzaprine 10 mg PO TID PRN #10 tab 09/27/18 Allergies Allergy/AdvReac Type Severity Reaction Status Date / Time No Known Allergies Allergy Verified 09/28/18 11:34 General Stated Complaint: Nk/Back Pain JUWAN: 3 Review of Systems Constitutional Reports as per HPI, Denies headache(s) and Denies weakness ENT Denies vertigo and Denies headache(s) Cardiovascular Reports as per HPI and Denies syncope Respiratory Reports as per HPI Gastrointestinal Reports as per HPI, Denies abdominal pain, Denies change in stool character, Denies nausea and Denies vomiting Genitourinary Denies system reviewed and no additional complaints, except as docu (Denies any change in urinary habits) Musculoskeletal Reports as per HPI, Denies numbness and Reports tingling Integumentary/Breasts Reports as per HPI and Denies rash Neurologic Reports as per HPI, Denies vertigo, Denies syncope, Denies headache(s), Denies numbness, Denies radicular pain, Reports tingling, Denies tremor(s) and Denies weakness Exam Const General: cooperative, healthy appearing, comfortable, no acute distress, well developed and well groomed Nutritional Appearance: average body habitus and well nourished Orientation: alert, awake and oriented x3 HENMT Head: normal to inspection, normocephalic and atraumatic Ears: hearing grossly normal bilaterally Mouth: oral mucosae normal, lip normal and tongue normal Teeth and gingiva: dentition normal Throat: posterior oropharynx normal Eyes General: appearance normal, both eyes and all related structures Neck Neck: full ROM, no lymphadenopathy, no meningeal signs, trachea midline, supple and tender (No midline tenderness. Patient does have tenderness along the lateral aspect of the neck, this area is noted to be tight consistent with muscle spasm. No step-off is palpable. Full range of motion with no pain elicited per) Thyroid: thyroid normal Resp Effort & Inspection: normal respiratory effort, able to speak in complete sentences and no respiratory distress Auscultation: clear to auscultation bilaterally, no rales, no rhonchi and no wheezes Cardio Rate: regular rate Rhythm: regular rhythm Heart Sounds: S1 normal and S2 normal Back/Spine/Pelvis Back: no CVA tenderness Cervical Spine: normal cervical lordosis and cervical ROM normal Thoracic/Lumbar Spine: thoracic and lumbar spine normal to inspection Skin General skin exam: no rashes or lesions noted Trauma: no lacerations or abrasions Neuro General: alert, awake, oriented x3, gait normal, tone normal, moves all extremities and deep tendon reflexes 2+ bilaterally Cranial Nerves: CN's II-XI intact bilaterally Cognition: normal cognition Speech: speech normal Gait: normal gait Motor: muscle tone normal throughout, strength 5/5 throughout, no pronator drift, no movement abnormalities noted and no fasciculations Sensory Exam: no sensory deficits noted (Two-point discrimination is not act) Coordination: [id number] test normal, [id number] test normal and rapid alternating movement UE normal Extrem General: normal to inspection, full ROM and normal capillary refill Psych Appearance: grossly normal and well kempt Mental Status: mental status grossly normal Speech and Movement: speech and movement normal Course Vital Signs Temperature 37.6 C H 09/27/18 17:27 Pulse 63 09/27/18 17:27 Respiratory Rate 14 09/27/18 17:27 Blood Pressure 156/95 H 09/27/18 17:27 Pulse Oximetry 98 09/27/18 17:27 Temperature 37.6 C H 09/27/18 17:27 Temperature Source Skin 09/27/18 17:27 Pulse 63 09/27/18 17:27 Respiratory Rate 14 09/27/18 17:27 Respiratory Effort 09/27/18 17:31 Blood Pressure 156/95 H 09/27/18 17:27 Blood Pressure Position Sitting 09/27/18 17:27 Pulse Oximetry 98 09/27/18 17:27 Oxygen Delivery Method Room Air 09/27/18 17:27 Oxygen Flow Rate 0 09/27/18 17:27 Pain Level 8 09/27/18 17:35
[2018-09-27] MEDS: Diazepam 5 MG TAB PO (19:10)
[2018-09-27] MEDS: Ketorolac 30 MG/ML VIAL IM (19:24)
[2018-09-27] MEDS: Lidocaine 5% Patch 1 PATCH TP (19:25)
[2018-09-27] MEDS: Cyclobenzaprine 10 MG TAB 20 MG PO (20:05)
[2018-09-27 20:08] VITALS: BP 138/92; PULSE 58; RESP 14; TEMP 36.7; O2SAT 98
[2018-09-27] MEDS: Acetaminophen 500 MG TAB 1000 MG PO (20:12)
[2018-09-27] MEDS: oxyCODONE 5 MG TAB 10 MG PO (20:25)
[2018-09-27] MEDS: oxyCODONE 5 MG TAB PO (20:25)
--- NOTE | 2018-09-28 20:46 | ED.GENADUL_ITS ---
Discharge Plan Disposition Patient Disposition: HOME Condition: Fair Discharge Details Chief Complaint: Nk/Back Pain Clinical Impression: Acute neck pain, Muscle spasm Primary Care Provider: Anisha Zepeda ED Provider: Lisa Ramesh Home Meds and New Rx's Prescriptions: New cyclobenzaprine 10 mg tablet 10 mg PO TID PRN (Reason: muscle spasm) Qty: 10 RF: 0 No Action ibuprofen 200 mg Capsule 200 - 800 mg PO PRN PRNRF: 0 Discharge Instructions Instructions: Muscle Spasm (ED), Neck Pain (ED) Additional Instructions: Encourage hydration. Gentle stretching and frequent ambulation. Tylenol and/ or ibuprofen as needed for discomfort. You may try topical agents such as Salonpas or Lidoderm patches to help with discomfort. Flexeril as prescribed to help with muscle spasm. Please follow-up with primary care as soon as possible, please call them tomorrow to schedule appointment. If you develop weakness in your extremities, fever/chills, increased pain, change in bladder or bowel habit, sensory changes in your lower extremities or other new/ worsening symptoms please seek care urgently once again. Referrals: Anisha Zepeda [Primary Care Provider] - Discharge Data Discharge Date/Time-TO BE ENTERED AT DEPARTURE: 09/27/18 20:28 Medical Decision Making Patient is a 43-year-old male presenting today with chief complaint of neck pain. Patient was seen here 2 weeks ago after a fall. At that time, the patient had fallen down 4 steps. Came in few hours later after suffering a syncopal episode. Holt scan had been performed at that time. Exam was concerning for hematoma over the left hip. He feels that hematoma has been healing well. Denies any fevers or chills. Has not been physically exerting himself. No trauma since then. States that he had insidious onset of neck pain this afternoon. On exam, the pain seems to be quite lateral, equal bilaterally with associated muscle tension. No midline tenderness. Full range of motion. Spurling's is normal. He is also endorsing tingling in the bilateral hands. However, neuro exam is intact with no objective findings noted. Two-point discrimination is intact, strength is equal bilaterally. Discussed these findings with the patient. He was concerned that this may have been associated with the fall. However, given the length of time that has elapsed since his fall, I am not suspicious for neck injury at this time particularly has had a normal CT of his cervical spine. Will treat patient's pain with Toradol and Valium. Discussed plan with the patient. He denies any recent illness. Vital signs within normal limits. He appears nontoxic Patient reports the pain is improved after Toradol and Valium. However, he reports that the tingling has persisted. Again, no deficit is noted on neuro exam. Discussed case with Dr. Mcgowan. As the patient did have a recent CT, I do not feel that repeat imaging is appropriate particularly as he has not had any injury since then. She agrees to this assessment. Patient may need an outpatient MRI. At this time of the evening, MRI is not available. Without any neurologic deficit noted on exam, I do not feel the transfer of this patient is appropriate at this time. I have asked that he follow-up with his primary care tomorrow. We will augment his pain medication is received thus far with Tylenol. We discussed new/worsening symptoms, in particular neurologic deficits and signs of infection, and when to seek care urgently once again. All of his questions and concerns were addressed and he is in agreement with plan peer Had initially offered the patient something stronger for his discomfort but he declined. However, at the time of discharge, he is requesting stronger medication from nursing staff. Patient will be prescribed oxycodone for tonight. We did discuss risks benefits of this medication. Again, we reviewed narcotic safety usage as well as strict return precautions. All questions and concerns were addressed and he is in agreement this plan. Will contact his primary care provider tomorrow morning to schedule follow-up as soon as possible. [facility] Mode of arrival: ambulatory . Date/Time Provider Initiated Documentation: 09/27/18 17:49 . Limitations to Documentation: no limitations . Information obtained by: patient and family . History of Present Illness 43 year old M presents to the emergency department with the chief complaint of Neck pain, described as moderate, with intensity rated at 6. Quality is described as aching, and is localized to the neck. Patient reports no radiation. Patient started experiencing this hour(s) (Began at 1pm) and it has been constant. No relieving factors improve symptom(s), No exacerbating factors reported . Patient notes other; denies chest pain, cough, fever/chills , headaches, loss of appetite, nausea/vomiting, rash and shortness of breath. Patient did receive the following treatments prior to arrival, none Related Data Home Medications Medication Instructions Recorded Confirmed cyclobenzaprine 10 mg PO TID PRN #10 tab 09/27/18 09/28/18 ibuprofen 200 - 800 mg PO PRN PRN 09/28/18 09/28/18 Previous Rx's Medication Instructions Recorded cyclobenzaprine 10 mg PO TID PRN #10 tab 09/27/18 Allergies Allergy/AdvReac Type Severity Reaction Status Date / Time No Known Allergies Allergy Verified 09/28/18 11:34 General Stated Complaint: Nk/Back Pain JUWAN: 3 Review of Systems Constitutional Reports as per HPI, Denies headache(s) and Denies weakness ENT Denies vertigo and Denies headache(s) Cardiovascular Reports as per HPI and Denies syncope Respiratory Reports as per HPI Gastrointestinal Reports as per HPI, Denies abdominal pain, Denies change in stool character, Denies nausea and Denies vomiting Genitourinary Denies system reviewed and no additional complaints, except as docu (Denies any change in urinary habits) Musculoskeletal Reports as per HPI, Denies numbness and Reports tingling Integumentary/Breasts Reports as per HPI and Denies rash Neurologic Reports as per HPI, Denies vertigo, Denies syncope, Denies headache(s), Denies numbness, Denies radicular pain, Reports tingling, Denies tremor(s) and Denies weakness Exam Const General: cooperative, healthy appearing, comfortable, no acute distress, well developed and well groomed Nutritional Appearance: average body habitus and well nourished Orientation: alert, awake and oriented x3 HENMT Head: normal to inspection, normocephalic and atraumatic Ears: hearing grossly normal bilaterally Mouth: oral mucosae normal, lip normal and tongue normal Teeth and gingiva: dentition normal Throat: posterior oropharynx normal Eyes General: appearance normal, both eyes and all related structures Neck Neck: full ROM, no lymphadenopathy, no meningeal signs, trachea midline, supple and tender (No midline tenderness. Patient does have tenderness along the lateral aspect of the neck, this area is noted to be tight consistent with muscle spasm. No step-off is palpable. Full range of motion with no pain elicited per) Thyroid: thyroid normal Resp Effort & Inspection: normal respiratory effort, able to speak in complete sentences and no respiratory distress Auscultation: clear to auscultation bilaterally, no rales, no rhonchi and no wheezes Cardio Rate: regular rate Rhythm: regular rhythm Heart Sounds: S1 normal and S2 normal Back/Spine/Pelvis Back: no CVA tenderness Cervical Spine: normal cervical lordosis and cervical ROM normal Thoracic/Lumbar Spine: thoracic and lumbar spine normal to inspection Skin General skin exam: no rashes or lesions noted Trauma: no lacerations or abrasions Neuro General: alert, awake, oriented x3, gait normal, tone normal, moves all extremities and deep tendon reflexes 2+ bilaterally Cranial Nerves: CN's II-XI intact bilaterally Cognition: normal cognition Speech: speech normal Gait: normal gait Motor: muscle tone normal throughout, strength 5/5 throughout, no pronator drift , no movement abnormalities noted and no fasciculations Sensory Exam: no sensory deficits noted (Two-point discrimination is not act) Coordination: [id number] test normal, [id number] test normal and rapid alternating movement UE normal Extrem General: normal to inspection, full ROM and normal capillary refill Psych Appearance: grossly normal and well kempt Mental Status: mental status grossly normal Speech and Movement: speech and movement normal Course Vital Signs Temperature 37.6 C H 09/27/18 17:27 Pulse 63 09/27/18 17:27 Respiratory Rate 14 09/27/18 17:27 Blood Pressure 156/95 H 09/27/18 17:27 Pulse Oximetry 98 09/27/18 17:27 Temperature 37.6 C H 09/27/18 17:27 Temperature Source Skin 09/27/18 17:27 Pulse 63 09/27/18 17:27 Respiratory Rate 14 09/27/18 17:27 Respiratory Effort 09/27/18 17:31 Blood Pressure 156/95 H 09/27/18 17:27 Blood Pressure Position Sitting 09/27/18 17:27 Pulse Oximetry 98 09/27/18 17:27 Oxygen Delivery Method Room Air 09/27/18 17:27 Oxygen Flow Rate 0 09/27/18 17:27 Pain Level 8 09/27/18 17:35
== END 2018-09-27 20:28 | disposition home or self-care (01) ==
PROVIDERS: Emergency Provider Physician Assistant; PCP Nurse Practitioner Adult Health
DX: M54.5 Low back pain (principal); M62.830 Muscle spasm of back
CPT/HCPCS: 96372; 99284; J1885

== ENCOUNTER 2018-09-28 11:23 | Emergency (ER) | payer BC, SELFPAY ==
[2018-09-28] VITALS (40 sets, daily range): BP systolic 97–140; BP diastolic 52–88; PULSE 39–67; RESP 10–26; TEMP 36.6; O2SAT 89–100
--- NOTE | 2018-09-28 12:19 | W.ED.GENAD ---
Discharge Plan Discharge Details Chief Complaint: Nk/Back Pain Primary Care Provider: Kathy Peralta ED Provider: Lisa Ramesh Home Meds and New Rx's Prescriptions: No Action cyclobenzaprine 10 mg tablet 10 mg PO TID PRN (Reason: muscle spasm) Qty: 10 RF: 0 ibuprofen 200 mg Capsule 200 - 800 mg PO PRN PRNRF: 0 Medical Decision Making <JUDIE Munoz - Last Filed: 09/28/18 14:41> Patient is a 43 year old RHD male, accompanied by family, with c/c of weakness in upper extremities, equal bilaterally. Patient was seen by myself last night with concern for tingling in upper extremities that began at 1PM. However, at that time, the patient did not have any deficits noted on neurologic exam. He was endorsing bilateral neck discomfort and was tight on exam. Full ROM of the neck, no midline tenderness. He states that while the lateral pain he was experiencing last night has since improved, now rating pain at a 2/10, he is noting weakness in bilateral upper extremities. Feels that this is equal bilaterally. However, on exam, the patient seems to be slightly weaker on the R>L. He states that he continues to have tingling in the hands, this has not progressed. Sesnation is reported to normalize at the shoulder bilaterally. Does not feel weak in lower extremities, lower extremity strength equal bilaterally. No recent illness, no recent URI. Denies familial history of muscle or nervous disorders. Patient is otherwise healthy. Fell down 4 steps 2 weeks ago at which time he suffered a hematoma to his left hip. Feels that this has been healing well with no recent increase in his discomfort. Did not have any neck pain or head injury at the time of the incident. He was seen in the ER x 2 after the fall. Initially he was humphrey scanned as he suffered a syncopal episode 3 hours after the fall. No abnormality noted on head or neck imaging. On exam, patient is having notable weakness to upper extremities. Core strength and lower extremities are intact with no new deficit, no change in strength from last night. Reflexes remain intact and unchanged. Patient has great difficulty with finger to nose as he is so weak with FE of his bialteral upper extremities, again R>L. Lungs are clear, speaking in full sentences. Appears more fatigued today than last night. Consulted with Dr. Holland regarding patient. 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 Advises MRI of the neck. Will obtain MRI of the cervical spine, radiologist advises without contrast, as well as labroatory evaluation. Laboratory evaluation without any significant normality. No elevation in CRP or ESR. MRI still pending. Consulted with radiologist regarding his findings of the MRI. He notes cord edema at C3-C4, more so on the right side than the left. Does not note any defined congenital abnormalities Discussed these findings with the patient. He will be placed in a c-collar. Plan to consult with [facility] neurology. At this point, we do not have any bed availability here. We will push the images to their facility. They advised pushing imaging to Dr. De La Garza with neurosurgery, awaiting call back. When the patient came back to the department, he was laying in a supine position. Did appear to be belly breathing more than he had been. Sitting him more upright, he feels much improved and belly breathing subsides <Rick Lima MD - Last Filed: 09/28/18 14:27> Patient is a 43 year old RHD male, accompanied by family, with c/c of weakness in upper extremities, equal bilaterally. Patient was seen by myself last night with concern for tingling in upper extremities that began at 1PM. However, at that time, the patient did not have any deficits noted on neurologic exam. He was endorsing bilateral neck discomfort and was tight on exam. Full ROM of the neck, no midline tenderness. He states that while the lateral pain he was experiencing last night has since improved, now rating pain at a 2/10, he is noting weakness in bilateral upper extremities. Feels that this is equal bilaterally. However, on exam, the patient seems to be slightly weaker on the R>L. He states that he continues to have tingling in the hands, this has not progressed. Sesnation is reported to normalize at the shoulder bilaterally. Does not feel weak in lower extremities, lower extremity strength equal bilaterally. No recent illness, no recent URI. Denies familial history of muscle or nervous disorders. Patient is otherwise healthy. Fell down 4 steps 2 weeks ago at which time he suffered a hematoma to his left hip. Feels that this has been healing well with no recent increase in his discomfort. Did not have any neck pain or head injury at the time of the incident. He was seen in the ER x 2 after the fall. Initially he was humphrey scanned as he suffered a syncopal episode 3 hours after the fall. No abnormality noted on head or neck imaging. On exam, patient is having notable weakness to upper extremities. Core strength and lower extremities are intact with no new deficit, no change in strength from last night. Reflexes remain intact and unchanged. Patient has great difficulty with finger to nose as he is so weak with FE of his bialteral upper extremities, again R>L. Lungs are clear, speaking in full sentences. Appears more fatigued today than last night. Consulted with Dr. Holland regarding patient. 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 Advises MRI of the neck. Will obtain MRI of the cervical spine, radiologist advises without contrast, as well as labroatory evaluation. Laboratory evaluation without any significant normality. No elevation in CRP or ESR. MRI still pending. Consulted with radiologist regarding his findings of the MRI. He notes cord edema at C3-C4, more so on the right side than the left. Does not note any defined congenital abnormalities Discussed these findings with the patient. He will be placed in a c-collar. Plan to consult with [facility] neurology. At this point, we do not have any bed availability here. We will push the images to their facility HPI <JUDIE Munoz - Last Filed: 09/28/18 14:41> General Mode of arrival: ambulatory. Date/Time Provider Initiated Documentation: 09/28/18 11:28. Limitations to Documentation: no limitations. Information obtained by: patient and family. History of Present Illness 43 year old M presents to the emergency department with the chief complaint of bilateral upper extremity weakness, described as moderate, Patient started experiencing this hour(s) and it has been constant. No relieving factors improve symptom(s), No exacerbating factors reported . Patient notes weakness; denies confusion, chest pain, cough, diaphoresis, fever/chills, headaches, loss of appetite, nausea/vomiting, rash, shortness of breath and syncope. Patient did receive the following treatments prior to arrival, none Related Data Home Medications Medication Instructions Recorded Confirmed cyclobenzaprine 10 mg PO TID PRN #10 tab 09/27/18 09/28/18 ibuprofen 200 - 800 mg PO PRN PRN 09/28/18 09/28/18 Previous Rx's Medication Instructions Recorded cyclobenzaprine 10 mg PO TID PRN #10 tab 09/27/18 Allergies Allergy/AdvReac Type Severity Reaction Status Date / Time No Known Allergies Allergy Verified 09/28/18 11:34 General Stated Complaint: Nk/Back Pain JUWAN: 2 Review of Systems <JUDIE Munoz - Last Filed: 09/28/18 14:41> Constitutional Reports as per HPI, Denies headache(s) and Reports weakness Eyes Denies change in vision ENT Denies vertigo, Denies dizziness, Denies headache(s) and Reports neck pain (reports that neck pain from yesterday has vastly improved) Cardiovascular Reports as per HPI, Denies chest pain and Denies dyspnea (patient denies SOB but reports it feels like I need to take deep breaths) Respiratory Reports as per HPI, Denies cough and Denies dyspnea (patient denies SOB but reports it feels like I need to take deep breaths) Gastrointestinal Reports as per HPI, Denies abdominal pain, Denies change in bowel habits, Denies nausea and Denies vomiting Genitourinary Reports as per HPI, Denies urinary frequency, Denies urinary hesitancy, Denies urinary incontinence and Denies urinary urgency Musculoskeletal Reports as per HPI, Denies abnormal gait, Denies back pain, Denies myalgias, Denies arthralgias, Denies joint swelling, Reports muscle weakness, Reports neck pain (reports that neck pain from yesterday has vastly improved) and Reports tingling (bilateral hands) Integumentary/Breasts Reports as per HPI and Denies rash Neurologic Reports as per HPI, Denies abnormal gait, Denies behavioral changes, Denies vertigo, Denies dizziness, Denies headache(s), Reports lack of coordination, Reports focal weakness (bilateral upper extremiteis), Reports tingling (bilateral hands), Denies tremor(s) and Reports weakness Psychiatric Denies behavioral changes Exam <JUDIE Munoz - Last Filed: 11/20/18 14:41> Const General: cooperative, comfortable, no acute distress, well developed and well groomed Nutritional Appearance: average body habitus and well nourished Orientation: alert, awake and oriented x3 [facility] Head: normal to inspection, normocephalic and atraumatic Ears: hearing grossly normal bilaterally Mouth: oral mucosae normal, lip normal, tongue normal and oropharynx normal Teeth and gingiva: dentition normal Throat: posterior oropharynx normal Eyes General: appearance normal, both eyes and all related structures Alignment and Position: alignment normal Eyelids: eyelids normal Conjunctivae: conjunctivae normal Pupils: PERRL EOM: EOM intact bilaterally Neck Neck: normal visual inspection, full ROM, no lymphadenopathy, no meningeal signs, trachea midline and supple Resp Effort & Inspection: normal respiratory effort, able to speak in complete sentences and no respiratory distress Auscultation: clear to auscultation bilaterally, no rales, no rhonchi and no wheezes Cardio Rate: regular rate Rhythm: regular rhythm Heart Sounds: S1 normal and S2 normal GI Inspection: normal to inspection Palpation: soft, no hepatosplenomegaly, no guarding and nontender Back/Spine/Pelvis Back: no CVA tenderness Cervical Spine: normal cervical lordosis and cervical ROM normal Thoracic/Lumbar Spine: thoracic and lumbar spine normal to inspection Pelvis: other (patient has ecchymosis over the left side of iliac crest consistent with history of hematoma) Coccyx: other (patient has ecchymosis over the left side of iliac crest consistent with history of hematoma) Skin General skin exam: ecchymosis (hematoma over left hip as above. No erythema, warmth. No pain with palpation. No fluctuance noted.) Neuro General: alert, awake and oriented x3 Course <JUDIE Munoz - Last Filed: 09/28/18 14:41> Vital Signs Temperature 36.6 C 09/28/18 11:31 Pulse 48 L 09/28/18 11:31 Respiratory Rate 18 09/28/18 11:31 Blood Pressure 140/88 09/28/18 11:31 Pulse Oximetry 97 09/28/18 11:31 Temperature 36.6 C 09/28/18 11:31 Temperature Source Skin 09/28/18 11:31 Pulse 48 L 09/28/18 11:31 Respiratory Rate 18 09/28/18 11:31 Respiratory Effort 09/28/18 11:36 Blood Pressure 140/88 09/28/18 11:31 Pulse Oximetry 97 09/28/18 11:31
--- NOTE | 2018-09-28 12:32 | ED.GENADUL_ITS ---
Discharge Plan Discharge Details Chief Complaint: Nk/Back Pain Primary Care Provider: Kathy Peralta ED Provider: Lisa Ramesh Home Meds and New Rx's Prescriptions: No Action cyclobenzaprine 10 mg tablet 10 mg PO TID PRN (Reason: muscle spasm) Qty: 10 RF: 0 ibuprofen 200 mg Capsule 200 - 800 mg PO PRN PRNRF: 0 Medical Decision Making <JUDIE Munoz - Last Filed: 09/28/18 14:41> Patient is a 43 year old RHD male, accompanied by family, with c/c of weakness in upper extremities, equal bilaterally. Patient was seen by myself last night with concern for tingling in upper extremities that began at 1PM. However, at that time, the patient did not have any deficits noted on neurologic exam. He was endorsing bilateral neck discomfort and was tight on exam. Full ROM of the neck, no midline tenderness. He states that while the lateral pain he was experiencing last night has since improved, now rating pain at a 2/10, he is noting weakness in bilateral upper extremities. Feels that this is equal bilaterally. However, on exam, the patient seems to be slightly weaker on the R> L. He states that he continues to have tingling in the hands, this has not progressed. Sesnation is reported to normalize at the shoulder bilaterally. Does not feel weak in lower extremities, lower extremity strength equal bilaterally. No recent illness, no recent URI. Denies familial history of muscle or nervous disorders. Patient is otherwise healthy. Fell down 4 steps 2 weeks ago at which time he suffered a hematoma to his left hip. Feels that this has been healing well with no recent increase in his discomfort. Did not have any neck pain or head injury at the time of the incident. He was seen in the ER x 2 after the fall. Initially he was humphrey scanned as he suffered a syncopal episode 3 hours after the fall. No abnormality noted on head or neck imaging. On exam, patient is having notable weakness to upper extremities. Core strength and lower extremities are intact with no new deficit, no change in strength from last night. Reflexes remain intact and unchanged. Patient has great difficulty with finger to nose as he is so weak with FE of his bialteral upper extremities, again R>L. Lungs are clear, speaking in full sentences. Appears more fatigued today than last night. Consulted with Dr. Holland regarding patient. 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 Advises MRI of the neck. Will obtain MRI of the cervical spine, radiologist advises without contrast, as well as labroatory evaluation. Laboratory evaluation without any significant normality. No elevation in CRP or ESR. MRI still pending. Consulted with radiologist regarding his findings of the MRI. He notes cord edema at C3-C4, more so on the right side than the left. Does not note any defined congenital abnormalities Discussed these findings with the patient. He will be placed in a c-collar. Plan to consult with [facility] neurology. At this point, we do not have any bed availability here. We will push the images to their facility. They advised pushing imaging to Dr. De La Garza with neurosurgery, awaiting call back. When the patient came back to the department, he was laying in a supine position. Did appear to be belly breathing more than he had been. Sitting him more upright, he feels much improved and belly breathing subsides <Rick Lima MD - Last Filed: 09/28/18 14:27> Patient is a 43 year old RHD male, accompanied by family, with c/c of weakness in upper extremities, equal bilaterally. Patient was seen by myself last night with concern for tingling in upper extremities that began at 1PM. However, at that time, the patient did not have any deficits noted on neurologic exam. He was endorsing bilateral neck discomfort and was tight on exam. Full ROM of the neck, no midline tenderness. He states that while the lateral pain he was experiencing last night has since improved, now rating pain at a 2/10, he is noting weakness in bilateral upper extremities. Feels that this is equal bilaterally. However, on exam, the patient seems to be slightly weaker on the R> L. He states that he continues to have tingling in the hands, this has not progressed. Sesnation is reported to normalize at the shoulder bilaterally. Does not feel weak in lower extremities, lower extremity strength equal bilaterally. No recent illness, no recent URI. Denies familial history of muscle or nervous disorders. Patient is otherwise healthy. Fell down 4 steps 2 weeks ago at which time he suffered a hematoma to his left hip. Feels that this has been healing well with no recent increase in his discomfort. Did not have any neck pain or head injury at the time of the incident. He was seen in the ER x 2 after the fall. Initially he was humphrey scanned as he suffered a syncopal episode 3 hours after the fall. No abnormality noted on head or neck imaging. On exam, patient is having notable weakness to upper extremities. Core strength and lower extremities are intact with no new deficit, no change in strength from last night. Reflexes remain intact and unchanged. Patient has great difficulty with finger to nose as he is so weak with FE of his bialteral upper extremities, again R>L. Lungs are clear, speaking in full sentences. Appears more fatigued today than last night. Consulted with Dr. Holland regarding patient. 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 Advises MRI of the neck. Will obtain MRI of the cervical spine, radiologist advises without contrast, as well as labroatory evaluation. Laboratory evaluation without any significant normality. No elevation in CRP or ESR. MRI still pending. Consulted with radiologist regarding his findings of the MRI. He notes cord edema at C3-C4, more so on the right side than the left. Does not note any defined congenital abnormalities Discussed these findings with the patient. He will be placed in a c-collar. Plan to consult with [facility] neurology. At this point, we do not have any bed availability here. We will push the images to their facility HPI <JUDIE Munoz - Last Filed: 09/28/18 14:41> General Mode of arrival: ambulatory . Date/Time Provider Initiated Documentation: 09/28/18 11:28 . Limitations to Documentation: no limitations . Information obtained by: patient and family . History of Present Illness 43 year old M presents to the emergency department with the chief complaint of bilateral upper extremity weakness, described as moderate, Patient started experiencing this hour(s) and it has been constant. No relieving factors improve symptom(s), No exacerbating factors reported . Patient notes weakness; denies confusion, chest pain, cough, diaphoresis, fever/chills, headaches, loss of appetite, nausea/vomiting, rash, shortness of breath and syncope. Patient did receive the following treatments prior to arrival, none Related Data Home Medications Medication Instructions Recorded Confirmed cyclobenzaprine 10 mg PO TID PRN #10 tab 09/27/18 09/28/18 ibuprofen 200 - 800 mg PO PRN PRN 09/28/18 09/28/18 Previous Rx's Medication Instructions Recorded cyclobenzaprine 10 mg PO TID PRN #10 tab 09/27/18 Allergies Allergy/AdvReac Type Severity Reaction Status Date / Time No Known Allergies Allergy Verified 09/28/18 11:34 General Stated Complaint: Nk/Back Pain JUWAN: 2 Review of Systems <JUDIE Munoz - Last Filed: 09/28/18 14:41> Constitutional Reports as per HPI, Denies headache(s) and Reports weakness Eyes Denies change in vision ENT Denies vertigo, Denies dizziness, Denies headache(s) and Reports neck pain ( reports that neck pain from yesterday has vastly improved) Cardiovascular Reports as per HPI, Denies chest pain and Denies dyspnea (patient denies SOB but reports it feels like I need to take deep breaths) Respiratory Reports as per HPI, Denies cough and Denies dyspnea (patient denies SOB but reports it feels like I need to take deep breaths) Gastrointestinal Reports as per HPI, Denies abdominal pain, Denies change in bowel habits, Denies nausea and Denies vomiting Genitourinary Reports as per HPI, Denies urinary frequency, Denies urinary hesitancy, Denies urinary incontinence and Denies urinary urgency Musculoskeletal Reports as per HPI, Denies abnormal gait, Denies back pain, Denies myalgias, Denies arthralgias, Denies joint swelling, Reports muscle weakness, Reports neck pain (reports that neck pain from yesterday has vastly improved) and Reports tingling (bilateral hands) Integumentary/Breasts Reports as per HPI and Denies rash Neurologic Reports as per HPI, Denies abnormal gait, Denies behavioral changes, Denies vertigo, Denies dizziness, Denies headache(s), Reports lack of coordination, Reports focal weakness (bilateral upper extremiteis), Reports tingling ( bilateral hands), Denies tremor(s) and Reports weakness Psychiatric Denies behavioral changes Exam <JUDIE Munoz - Last Filed: 11/20/18 14:41> Const General: cooperative, comfortable, no acute distress, well developed and well groomed Nutritional Appearance: average body habitus and well nourished Orientation: alert, awake and oriented x3 [facility] Head: normal to inspection, normocephalic and atraumatic Ears: hearing grossly normal bilaterally Mouth: oral mucosae normal, lip normal, tongue normal and oropharynx normal Teeth and gingiva: dentition normal Throat: posterior oropharynx normal Eyes General: appearance normal, both eyes and all related structures Alignment and Position: alignment normal Eyelids: eyelids normal Conjunctivae: conjunctivae normal Pupils: PERRL EOM: EOM intact bilaterally Neck Neck: normal visual inspection, full ROM, no lymphadenopathy, no meningeal signs , trachea midline and supple Resp Effort & Inspection: normal respiratory effort, able to speak in complete sentences and no respiratory distress Auscultation: clear to auscultation bilaterally, no rales, no rhonchi and no wheezes Cardio Rate: regular rate Rhythm: regular rhythm Heart Sounds: S1 normal and S2 normal GI Inspection: normal to inspection Palpation: soft, no hepatosplenomegaly, no guarding and nontender Back/Spine/Pelvis Back: no CVA tenderness Cervical Spine: normal cervical lordosis and cervical ROM normal Thoracic/Lumbar Spine: thoracic and lumbar spine normal to inspection Pelvis: other (patient has ecchymosis over the left side of iliac crest consistent with history of hematoma) Coccyx: other (patient has ecchymosis over the left side of iliac crest consistent with history of hematoma) Skin General skin exam: ecchymosis (hematoma over left hip as above. No erythema, warmth. No pain with palpation. No fluctuance noted.) Neuro General: alert, awake and oriented x3 Course <JUDIE Munoz - Last Filed: 09/28/18 14:41> Vital Signs Temperature 36.6 C 09/28/18 11:31 Pulse 48 L 09/28/18 11:31 Respiratory Rate 18 09/28/18 11:31 Blood Pressure 140/88 09/28/18 11:31 Pulse Oximetry 97 09/28/18 11:31 Temperature 36.6 C 09/28/18 11:31 Temperature Source Skin 09/28/18 11:31 Pulse 48 L 09/28/18 11:31 Respiratory Rate 18 09/28/18 11:31 Respiratory Effort 09/28/18 11:36 Blood Pressure 140/88 09/28/18 11:31 Pulse Oximetry 97 09/28/18 11:31
[2018-09-28 12:40] LABS: Abs Immature Grans 0.05 k/cumm (0.0-0.09); Absolute Basophil Count 0.03 k/cumm (0.0-0.2); Absolute Eosinophil Count 0.09 k/cumm (0.0-0.7); Absolute Monocyte Count 0.79 k/cumm (0.11-0.7); Absolute Neutrophil Count 6.97 k/cumm (1.2-6.7); Basophils % 0.3; Eosinophils % 0.9; HCT 40.7 % (40.0-50.0); HGB 14.1 g/dL (13.5-17.5); Immature Grans % 0.5; Lymphocytes % 17.7; Mean Corp. HGB Concentration 34.6 g/dL (32.0-36.0); Mean Corpuscular Hemoglobin 30.1 pg (27.0-33.0); Mean Platelet Volume 9.7 fL (8.0-11.0); Monocytes % 8.2; Neutrophils % 72.4; Platelet Count 295 x1000/uL (130-400); RBC 4.68 m/cumm (4.50-6.00); RBC Distribution Width 13.3 % (11.8-14.1); White Blood Cell Count 9.63 k/cumm (4.4-10.8)
[2018-09-28 13:03] LABS: ALT 56 U/L (12-78); AST 27 U/L (15-37); Albumin 4.1 g/dL (3.4-5.0); Alkaline Phosphatase 54 U/L (46-116); BUN 17 mg/dL (7-18); Bilirubin, Total 0.8 mg/dL (0.2-1.0); C-Reactive Protein 0.14 mg/dL (0.0-0.3); CREATININE 0.86 mg/dL (0.70-1.30); Calcium 8.8 mg/dL (8.5-10.1); Chloride 103 mmol/L (98-107); Glucose 107 mg/dL (70-100); Sodium 140 mmol/L (136-145); Total Protein 7.6 g/dL (6.4-8.2)
--- NOTE | 2018-09-28 13:40 | DI.RAD_ITS ---
SYMPTOMS/DIAGNOSIS: BILATERAL UPPER EXTREMITY WEAKNESS S/P FALL 2 WEEKS AGO CERVICAL SPINE MRI: MR examination of the cervical spine was performed according to the usual protocol. No significant bony signal abnormality seen. No gross disc herniation. No central canal spinal stenosis or significant neural foraminal stenosis. The spinal cord shows abnormal central signal from C2 through C4 inferior endplate level on T2 weighted images and STIR images suggest possible more caudal and cranial extension; this is an uncertain finding. No gross expansion of the cord. The findings as described could be secondary to inflammatory, infectious or neoplastic causes, but with a history of recent fall, the possibility of acute/subacute cord injury should be considered. Correlation with contrast enhanced MRI is recommended.
[2018-09-28 13:46] LABS: ESR 13 MM/HR (0-15)
--- NOTE | 2018-09-28 15:06 | W.ED.GENAD ---
Discharge Plan Disposition Patient Disposition: SONJA WAGNER ([facility]) Condition: Serious Discharge Details Chief Complaint: Nk/Back Pain Clinical Impression: Edema of spinal cord, Bilateral arm weakness Primary Care Provider: Kathy Peralta ED Provider: Lisa Ramesh Home Meds and New Rx's Prescriptions: No Action cyclobenzaprine 10 mg tablet 10 mg PO TID PRN (Reason: muscle spasm) Qty: 10 RF: 0 ibuprofen 200 mg Capsule 200 - 800 mg PO PRN PRNRF: 0 Discharge Data Discharge Date/Time-TO BE ENTERED AT DEPARTURE: 09/28/18 19:00 Medical Decision Making Patient a 43-year-old [id number] male presenting today with chief complaint of bilateral upper extremity with tingling in bilateral hands. Patient was seen here by myself last night. At that point, he has been endorsing a few hours of bilateral hand tingling. No neuro deficit was noted on exam last night. Two-point discrimination was intact, strength was intact as was reflexes. Patient appeared to be resting comfortable. At that point, his primary concern was neck discomfort which he also started a few hours prior. Neck pain was not midline, seem more along the lateral aspect with associated muscle tightness. At the time I saw the patient last night I had been concerned for muscle spasm. Patient was seen here 2 weeks ago after a fall. Patient reports that when he fell he did not strike his head, no neck pain. Did not have any neck pain until yesterday. Had been humphrey scanned at the time he was initially evaluated as he had a syncopal episode a few hours after the fall. No abnormality was noted in the head of the neck on CT imaging. Patient denies having neck pain previously. No subsequent injury. On exam today patient is endorsing and exhibiting bilateral upper extremity weakness. Weakness is noted to be worse on the right than the left although patient feels that these are equal bilaterally. Finger to nose testing is difficult for the patient to perform secondary to the elevation of the arm. Particular on the right side he is having exquisite difficulty with forward elevation of the shoulder. Movement of the hands are intact although weaker than noted last night. Reflexes remain intact in upper extremities. No midline tenderness of the cervical spine. Full range of motion of the neck. No pain with palpation about the neck. He is endorsing mild headache. Patient has diminished sensation in the upper extremities until the shoulder bilaterally. Neuro exam is otherwise intact. Reflexes remain intact in lower extremities, normal Babinski. Sensation is intact in the lower extremities, no saddle paresthesias. Reflexes and strength intact in lower extremities. No change in bladder or bowel function. Core strength seems to be intact. Patient is breathing comfortably and lungs are clear. Consult with Dr. Simpson regarding the patient's noted increasing weakness in the bilateral upper extremities. She advised that this may be cord compression. Is questioning if this may be related to the fall and the patient had a congenitally narrow cord previously this may put him at higher risk. She advised MRI of the cervical spine. Laboratory evaluation including CRP, ESR, CBC, CMP without acute abnormality MRI reviewed by radiologist. Advised that it is concerning for cord edema at the C3-C4 level much on the right side than the left. Denies any narrowing or congenital abnormality. Consulted with [facility] neurosurgery regarding MRI findings. Images were placed to [facility]. Awaiting callback After MRI, patient reports his pain, particular in his head, is increased. He is requesting pain medication. We will give the patient 2 of morphine to help with his discomfort After receiving morphine, patient became diaphoretic nauseated. Appeared to be having a vasovagal reaction. Patient was given for Zofran and this quickly subsided. He is feeling much improved Collar was placed after results were discussed with radiologist. Patient was not tolerating collar well. Feels that this is exacerbating his discomfort. We will try to find a soft collar for the patient Spoke with Dr. Jorge with neurosurgery at [facility]. He reviewed the images and advised that this is not consistent with central cord syndrome as I had been thinking as there is no stenosis. They report that this is typically only with pre-existing conditions. Also advised that if this was in a post traumatic setting, the symptoms would likely have started sooner than they had. Feel that discussion with neurology is appropriate at this time. Discussed the case with Dr. Sue with neurology who also reviewed the images. 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 ADvised that patient will need to be transferred to higher level of care but that they do not have bed availability at this time. Images have been pushed to [facility], awaiting call back to discuss transfer. Spoke with spine surgery, Dr. Lara. We discussed the case and he advised speaking with neurology. Awaiting to hear from them. Spoke with Dr. Lorenz with neurology at [facility]. He feels a transfer in their department is appropriate at this time and advised ER to ER transfer. Waiting to speak with the ER physician In the interim, we will begin arranging for transport. I feel the patient should be transferred with a medic so the pain medication may be given as well as monitor the airway is I am concerned that the patient develops belly breathing when lying supine and airway should be monitored. Consulted with Dr. Verduzco in the ED who agrees to patient in transfer. Patient will be ED to ED transfer via EMS with medic. Discussed plan with patient and family who are in agreement with this plan. While awaiting transfer, patient reports that he is feeling increasingly short of breath, is currently tripoding to feel improvement. This is greatly different then when patient first presented. He has progressively needed to be in a more upright position. However, patient conintues to speak in full sentences, lungs are clear. Will obtain a portable cxr, abg. Blood on her ABG was quite dark, findings are suggestive of a VBG. Dr. Pro reviewed this. Patient was begun on BiPAP by respiratory and feels much improved. Again, patient did not desaturate. Was able to speak in full sentences. However, we were concerned for possible respiratory fatigue. He is tolerating BiPAP very well and will remain on this for the time of trans- Chest x-ray reviewed by radiologist. He noted significant for low lung volumes with mild bibasilar platelike atelectasis. Small left pleural effusion. No cardiomegaly. Degenerative changes of the spine noted. We will push these images to [facility] Discussed the case at length with Dr. Pro as well as crystal growing technician. In particular, we discussed risk/benefits of intubation. However, as the patient is doing quite well on BiPAP at this time and I feel that intubate patient is warranted. In particular, I discussed with the patient that while this may be needed in the future, it would be best if he is able to be evaluated first by neuro. as patient is feeling so much improved with BiPAP he agrees with this. Discussed risk of deterioration in route with the patient is family. They voiced understanding and wished to continue with transfer. I did contact [facility] to update them on the patient's recent change in respiration. All of their questions and concerns were addressed and they are in agreement with this plan. HPI General Mode of arrival: ambulatory. Date/Time Provider Initiated Documentation: 09/28/18 11:28. Limitations to Documentation: no limitations. Information obtained by: patient and family. History of Present Illness 43 year old M presents to the emergency department with the chief complaint of bilateral upper extremity weakness, described as moderate, Patient started experiencing this hour(s) and it has been constant. No relieving factors improve symptom(s), No exacerbating factors reported . Patient notes headaches (endorses mild VEGA), shortness of breath (feels SOB when supine, feels that I am taking half a breath) and weakness; denies chest pain, cough, fever/chills, nausea/vomiting, rash, seizure and syncope. Patient did receive the following treatments prior to arrival, none Related Data Home Medications Medication Instructions Recorded Confirmed cyclobenzaprine 10 mg PO TID PRN #10 tab 09/27/18 09/28/18 ibuprofen 200 - 800 mg PO PRN PRN 09/28/18 09/28/18 Previous Rx's Medication Instructions Recorded cyclobenzaprine 10 mg PO TID PRN #10 tab 09/27/18 Allergies Allergy/AdvReac Type Severity Reaction Status Date / Time No Known Allergies Allergy Verified 09/28/18 11:34 General Stated Complaint: Nk/Back Pain JUWAN: 2 Review of Systems Constitutional Reports as per HPI and Reports weakness (bilateral upper extremities) Eyes Reports as per HPI, Denies change in vision and Denies loss of vision Cardiovascular Reports as per HPI, Denies chest pain, Reports dyspnea (when supine) and Denies dyspnea on exertion Respiratory Reports as per HPI, Denies cough, Reports dyspnea (when supine) and Denies dyspnea on exertion Gastrointestinal Reports as per HPI, Denies abdominal pain, Denies change in stool character, Denies nausea and Denies vomiting Genitourinary Reports as per HPI, Denies urinary frequency and Denies urinary incontinence Musculoskeletal Reports as per HPI, Reports abnormal gait (feels wobbly), Denies back pain, Denies myalgias, Denies arthralgias, Denies stiffness and Reports tingling (bilateral hands) Integumentary/Breasts Reports as per HPI and Denies rash Neurologic Reports as per HPI, Reports abnormal gait (feels wobbly), Reports lack of coordination, Denies loss of vision, Reports tingling (bilateral hands) and Reports weakness (bilateral upper extremities) Exam Const General: cooperative, healthy appearing, comfortable, no acute distress, well developed and well groomed Nutritional Appearance: average body habitus and well nourished Orientation: alert, awake and oriented x3 [facility] Head: normal to inspection, normocephalic and atraumatic Ears: hearing grossly normal bilaterally General nose exam: external nose normal Face and sinus: normal facial exam Mouth: oral mucosae normal, lip normal, tongue normal and mucous membranes dry (patient appears dehydrated) Teeth and gingiva: dentition normal Throat: posterior oropharynx normal, tonsils normal and uvula midline Eyes General: appearance normal, both eyes and all related structures Alignment and Position: alignment normal Eyelids: eyelids normal Conjunctivae: conjunctivae normal Pupils: PERRL EOM: EOM intact bilaterally Neck Neck: normal visual inspection, full ROM, no lymphadenopathy, no meningeal signs, trachea midline and supple Chest Chest: normal inspection of the chest Resp Effort & Inspection: normal respiratory effort, able to speak in complete sentences and no respiratory distress Auscultation: clear to auscultation bilaterally, no rales, no rhonchi and no wheezes Cardio Rate: regular rate Rhythm: regular rhythm Heart Sounds: S1 normal and S2 normal GI Inspection: normal to inspection Palpation: soft, no hepatosplenomegaly and nontender Back/Spine/Pelvis Cervical Spine: normal cervical lordosis Thoracic/Lumbar Spine: thoracic and lumbar spine normal to inspection Pelvis: other (patient has large area of ecchymosis over the left side of the pelvis consistent with history of hematoma) Coccyx: other (patient has large area of ecchymosis over the left side of the pelvis consistent with history of hematoma) Skin General skin exam: ecchymosis (left pelvis as above) Neuro General: alert, awake, oriented x3, gait abnormal (gait is slower than yesterday but no acute deficit noted), moves all extremities (Patient is able to move all extremities. However, he does have focal weakness in his bilateral upper extremities, right worse than left. In particular, patient is having difficulty with forward elevation at the shoulders. Independent Freight Agent strength is weakened compared to yesterday, equal bilaterally. ), no meningeal signs, CN's II-XI intact bilaterally, deep tendon reflexes 2+ bilaterally and not confused Cranial Nerves: CN's II-XI intact bilaterally Cognition: normal cognition Speech: speech normal Gait: gait abnormal (As above) Motor: tone not normal throughout (Weakness in upper extremities as above. Patient has exquisite difficulty with forward elevation, but again the right upper extremity. Strength is equal bilaterally in the lower extremities and seems to be unchanged from yesterday), no fasciculations and no tremors Sensory Exam: sensory deficits noted Coordination: bmnral-wv-anph test abnormal (Patient is unable to follow his test on the right side secondary to right upper extremity with), peki-so-egey test normal and abnormal rapid alternating movement UE (Patient is able to perform this task was quite slow to do so) Extrem General: abnormal to inspection (Weakness as above) Psych Appearance: grossly normal and well kempt Mental Status: mental status grossly normal Speech and Movement: speech and movement normal Course Vital Signs Temperature 36.6 C 09/28/18 11:31 Pulse 48 L 09/28/18 11:31 Respiratory Rate 18 09/28/18 11:31 Blood Pressure 140/88 09/28/18 11:31 Pulse Oximetry 97 09/28/18 11:31 Temperature 36.6 C 09/28/18 11:31 Temperature Source Skin 09/28/18 11:31 Pulse 48 L 09/28/18 11:31 Respiratory Rate 18 09/28/18 11:31 Respiratory Effort 09/28/18 11:36 Blood Pressure 140/88 09/28/18 11:31 Pulse Oximetry 97 09/28/18 11:31 Pain Level 6 09/28/18 12:20 Lab/Test Results Lab/Test Results: Laboratory Tests Range/Units 09/28/18 09/28/18 12:27 12:27 WBC (4.4-10.8) k/cumm 9.63 RBC (4.50-6.00) m/cumm 4.68 Hgb (13.5-17.5) g/dL 14.1 Hct (40.0-50.0) % 40.7 MCV (80-95) fL 87.0 MCH (27.0-33.0) pg 30.1 MCHC (32.0-36.0) g/dL 34.6 RDW (11.8-14.1) % 13.3 Plt Count (130-400) x1000/uL 295 MPV (8.0-11.0) fL 9.7 Immature Gran % 0.5 Neutrophils % 72.4 Lymphocytes % 17.7 Monocytes % 8.2 Eosinophils % 0.9 Basophils % 0.3 Absolute Neutrophils (1.2-6.7) k/cumm 6.97 H Absolute Lymphocytes (1.2-3.4) k/cumm 1.70 Absolute Monocytes (0.11-0.7) k/cumm 0.79 H Absolute Eosinophils (0.0-0.7) k/cumm 0.09 Absolute Basophils (0.0-0.2) k/cumm 0.03 ESR (0-15) MM/HR 13 Sodium (136-145) mmol/L 140 Potassium (3.5-5.1) mmol/L 4.0 Chloride (98-107) mmol/L 103 Carbon Dioxide (21.0-32.0) mmol/L 30.0 Anion Gap (3-11) mmol/L 7.0 BUN (7-18) mg/dL 17 Creatinine (0.70-1.30) mg/dL 0.86 Estimated GFR/1.73 m2 (mL/min/1.73m2) >= 60.00 Glucose (70-100) mg/dL 107 H Calcium (8.5-10.1) mg/dL 8.8 Total Bilirubin (0.2-1.0) mg/dL 0.8 AST (15-37) U/L 27 ALT (12-78) U/L 56 Alkaline Phosphatase (46-116) U/L 54 C-Reactive Protein (0.0-0.3) mg/dL 0.14 Total Protein (6.4-8.2) g/dL 7.6 Albumin (3.4-5.0) g/dL 4.1
--- NOTE | 2018-09-28 15:10 | ED.GENADUL_ITS ---
Discharge Plan Disposition Patient Disposition: [facility] ([facility]) Condition: Serious Discharge Details Chief Complaint: Nk/Back Pain Clinical Impression: Edema of spinal cord, Bilateral arm weakness Primary Care Provider: Kathy Peralta ED Provider: Lisa Ramesh Home Meds and New Rx's Prescriptions: No Action cyclobenzaprine 10 mg tablet 10 mg PO TID PRN (Reason: muscle spasm) Qty: 10 RF: 0 ibuprofen 200 mg Capsule 200 - 800 mg PO PRN PRNRF: 0 Discharge Data Discharge Date/Time-TO BE ENTERED AT DEPARTURE: 09/28/18 19:00 Medical Decision Making Patient a 43-year-old [id number] male presenting today with chief complaint of bilateral upper extremity with tingling in bilateral hands. Patient was seen here by myself last night. At that point, he has been endorsing a few hours of bilateral hand tingling. No neuro deficit was noted on exam last night. Two-point discrimination was intact, strength was intact as was reflexes. Patient appeared to be resting comfortable. At that point, his primary concern was neck discomfort which he also started a few hours prior. Neck pain was not midline, seem more along the lateral aspect with associated muscle tightness. At the time I saw the patient last night I had been concerned for muscle spasm. Patient was seen here 2 weeks ago after a fall. Patient reports that when he fell he did not strike his head, no neck pain. Did not have any neck pain until yesterday. Had been humphrey scanned at the time he was initially evaluated as he had a syncopal episode a few hours after the fall. No abnormality was noted in the head of the neck on CT imaging. Patient denies having neck pain previously. No subsequent injury. On exam today patient is endorsing and exhibiting bilateral upper extremity weakness. Weakness is noted to be worse on the right than the left although patient feels that these are equal bilaterally. Finger to nose testing is difficult for the patient to perform secondary to the elevation of the arm. Particular on the right side he is having exquisite difficulty with forward elevation of the shoulder. Movement of the hands are intact although weaker than noted last night. Reflexes remain intact in upper extremities. No midline tenderness of the cervical spine. Full range of motion of the neck. No pain with palpation about the neck. He is endorsing mild headache. Patient has diminished sensation in the upper extremities until the shoulder bilaterally. Neuro exam is otherwise intact. Reflexes remain intact in lower extremities, normal Babinski. Sensation is intact in the lower extremities, no saddle paresthesias. Reflexes and strength intact in lower extremities. No change in bladder or bowel function. Core strength seems to be intact. Patient is breathing comfortably and lungs are clear. Consult with Dr. Simpson regarding the patient's noted increasing weakness in the bilateral upper extremities. She advised that this may be cord compression. Is questioning if this may be related to the fall and the patient had a congenitally narrow cord previously this may put him at higher risk. She advised MRI of the cervical spine. Laboratory evaluation including CRP, ESR, CBC, CMP without acute abnormality MRI reviewed by radiologist. Advised that it is concerning for cord edema at the C3-C4 level much on the right side than the left. Denies any narrowing or congenital abnormality. Consulted with [facility] neurosurgery regarding MRI findings. Images were placed to [facility]. Awaiting callback After MRI, patient reports his pain, particular in his head, is increased. He is requesting pain medication. We will give the patient 2 of morphine to help with his discomfort After receiving morphine, patient became diaphoretic nauseated. Appeared to be having a vasovagal reaction. Patient was given for Zofran and this quickly subsided. He is feeling much improved Collar was placed after results were discussed with radiologist. Patient was not tolerating collar well. Feels that this is exacerbating his discomfort. We will try to find a soft collar for the patient Spoke with Dr. Jorge with neurosurgery at [facility]. He reviewed the images and advised that this is not consistent with central cord syndrome as I had been thinking as there is no stenosis. They report that this is typically only with pre-existing conditions. Also advised that if this was in a post traumatic setting, the symptoms would likely have started sooner than they had. Feel that discussion with neurology is appropriate at this time. Discussed the case with Dr. Sue with neurology who also reviewed the images. 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 ADvised that patient will need to be transferred to higher level of care but that they do not have bed availability at this time. Images have been pushed to [facility], awaiting call back to discuss transfer. Spoke with spine surgery, Dr. Lara. We discussed the case and he advised speaking with neurology. Awaiting to hear from them. Spoke with Dr. Lornez with neurology at [facility]. He feels a transfer in their department is appropriate at this time and advised ER to ER transfer. Waiting to speak with the ER physician In the interim, we will begin arranging for transport. I feel the patient should be transferred with a medic so the pain medication may be given as well as monitor the airway is I am concerned that the patient develops belly breathing when lying supine and airway should be monitored. Consulted with Dr. Verduzco in the ED who agrees to patient in transfer. Patient will be ED to ED transfer via EMS with medic. Discussed plan with patient and family who are in agreement with this plan. While awaiting transfer, patient reports that he is feeling increasingly short of breath, is currently tripoding to feel improvement. This is greatly different then when patient first presented. He has progressively needed to be in a more upright position. However, patient conintues to speak in full sentences, lungs are clear. Will obtain a portable cxr, abg. Blood on her ABG was quite dark, findings are suggestive of a VBG. Dr. Pro reviewed this. Patient was begun on BiPAP by respiratory and feels much improved. Again, patient did not desaturate. Was able to speak in full sentences. However, we were concerned for possible respiratory fatigue. He is tolerating BiPAP very well and will remain on this for the time of trans- Chest x-ray reviewed by radiologist. He noted significant for low lung volumes with mild bibasilar platelike atelectasis. Small left pleural effusion. No cardiomegaly. Degenerative changes of the spine noted. We will push these images to [facility] Discussed the case at length with Dr. Pro as well as personnel coordinator. In particular , we discussed risk/benefits of intubation. However, as the patient is doing quite well on BiPAP at this time and I feel that intubate patient is warranted. In particular, I discussed with the patient that while this may be needed in the future, it would be best if he is able to be evaluated first by neuro. as patient is feeling so much improved with BiPAP he agrees with this. Discussed risk of deterioration in route with the patient is family. They voiced understanding and wished to continue with transfer. I did contact [facility] to update them on the patient's recent change in respiration. All of their questions and concerns were addressed and they are in agreement with this plan. HPI General Mode of arrival: ambulatory . Date/Time Provider Initiated Documentation: 09/28/18 11:28 . Limitations to Documentation: no limitations . Information obtained by: patient and family . History of Present Illness 43 year old M presents to the emergency department with the chief complaint of bilateral upper extremity weakness, described as moderate, Patient started experiencing this hour(s) and it has been constant. No relieving factors improve symptom(s), No exacerbating factors reported . Patient notes headaches (endorses mild VEGA), shortness of breath (feels SOB when supine, feels that I am taking half a breath) and weakness; denies chest pain, cough, fever/ chills, nausea/vomiting, rash, seizure and syncope. Patient did receive the following treatments prior to arrival, none Related Data Home Medications Medication Instructions Recorded Confirmed cyclobenzaprine 10 mg PO TID PRN #10 tab 09/27/18 09/28/18 ibuprofen 200 - 800 mg PO PRN PRN 09/28/18 09/28/18 Previous Rx's Medication Instructions Recorded cyclobenzaprine 10 mg PO TID PRN #10 tab 09/27/18 Allergies Allergy/AdvReac Type Severity Reaction Status Date / Time No Known Allergies Allergy Verified 09/28/18 11:34 General Stated Complaint: Nk/Back Pain JUWAN: 2 Review of Systems Constitutional Reports as per HPI and Reports weakness (bilateral upper extremities) Eyes Reports as per HPI, Denies change in vision and Denies loss of vision Cardiovascular Reports as per HPI, Denies chest pain, Reports dyspnea (when supine) and Denies dyspnea on exertion Respiratory Reports as per HPI, Denies cough, Reports dyspnea (when supine) and Denies dyspnea on exertion Gastrointestinal Reports as per HPI, Denies abdominal pain, Denies change in stool character, Denies nausea and Denies vomiting Genitourinary Reports as per HPI, Denies urinary frequency and Denies urinary incontinence Musculoskeletal Reports as per HPI, Reports abnormal gait (feels wobbly), Denies back pain, Denies myalgias, Denies arthralgias, Denies stiffness and Reports tingling ( bilateral hands) Integumentary/Breasts Reports as per HPI and Denies rash Neurologic Reports as per HPI, Reports abnormal gait (feels wobbly), Reports lack of coordination, Denies loss of vision, Reports tingling (bilateral hands) and Reports weakness (bilateral upper extremities) Exam Const General: cooperative, healthy appearing, comfortable, no acute distress, well developed and well groomed Nutritional Appearance: average body habitus and well nourished Orientation: alert, awake and oriented x3 [facility] Head: normal to inspection, normocephalic and atraumatic Ears: hearing grossly normal bilaterally General nose exam: external nose normal Face and sinus: normal facial exam Mouth: oral mucosae normal, lip normal, tongue normal and mucous membranes dry ( patient appears dehydrated) Teeth and gingiva: dentition normal Throat: posterior oropharynx normal, tonsils normal and uvula midline Eyes General: appearance normal, both eyes and all related structures Alignment and Position: alignment normal Eyelids: eyelids normal Conjunctivae: conjunctivae normal Pupils: PERRL EOM: EOM intact bilaterally Neck Neck: normal visual inspection, full ROM, no lymphadenopathy, no meningeal signs , trachea midline and supple Chest Chest: normal inspection of the chest Resp Effort & Inspection: normal respiratory effort, able to speak in complete sentences and no respiratory distress Auscultation: clear to auscultation bilaterally, no rales, no rhonchi and no wheezes Cardio Rate: regular rate Rhythm: regular rhythm Heart Sounds: S1 normal and S2 normal GI Inspection: normal to inspection Palpation: soft, no hepatosplenomegaly and nontender Back/Spine/Pelvis Cervical Spine: normal cervical lordosis Thoracic/Lumbar Spine: thoracic and lumbar spine normal to inspection Pelvis: other (patient has large area of ecchymosis over the left side of the pelvis consistent with history of hematoma) Coccyx: other (patient has large area of ecchymosis over the left side of the pelvis consistent with history of hematoma) Skin General skin exam: ecchymosis (left pelvis as above) Neuro General: alert, awake, oriented x3, gait abnormal (gait is slower than yesterday but no acute deficit noted), moves all extremities (Patient is able to move all extremities. However, he does have focal weakness in his bilateral upper extremities, right worse than left. In particular, patient is having difficulty with forward elevation at the shoulders. Order Management Specialist strength is weakened compared to yesterday, equal bilaterally. ), no meningeal signs, CN's II-XI intact bilaterally, deep tendon reflexes 2+ bilaterally and not confused Cranial Nerves: CN's II-XI intact bilaterally Cognition: normal cognition Speech: speech normal Gait: gait abnormal (As above) Motor: tone not normal throughout (Weakness in upper extremities as above. Patient has exquisite difficulty with forward elevation, but again the right upper extremity. Strength is equal bilaterally in the lower extremities and seems to be unchanged from yesterday), no fasciculations and no tremors Sensory Exam: sensory deficits noted Coordination: [id number] test abnormal (Patient is unable to follow his test on the right side secondary to right upper extremity with), [id number] test normal and abnormal rapid alternating movement UE (Patient is able to perform this task was quite slow to do so) Extrem General: abnormal to inspection (Weakness as above) Psych Appearance: grossly normal and well kempt Mental Status: mental status grossly normal Speech and Movement: speech and movement normal Course Vital Signs Temperature 36.6 C 09/28/18 11:31 Pulse 48 L 09/28/18 11:31 Respiratory Rate 18 09/28/18 11:31 Blood Pressure 140/88 09/28/18 11:31 Pulse Oximetry 97 09/28/18 11:31 Temperature 36.6 C 09/28/18 11:31 Temperature Source Skin 09/28/18 11:31 Pulse 48 L 09/28/18 11:31 Respiratory Rate 18 09/28/18 11:31 Respiratory Effort 09/28/18 11:36 Blood Pressure 140/88 09/28/18 11:31 Pulse Oximetry 97 09/28/18 11:31 Pain Level 6 09/28/18 12:20 Lab/Test Results Lab/Test Results: Laboratory Tests Range/Units 09/28/18 09/28/18 12:27 12:27 WBC (4.4-10.8) k/cumm 9.63 RBC (4.50-6.00) m/cumm 4.68 Hgb (13.5-17.5) g/dL 14.1 Hct (40.0-50.0) % 40.7 MCV (80-95) fL 87.0 MCH (27.0-33.0) pg 30.1 MCHC (32.0-36.0) g/dL 34.6 RDW (11.8-14.1) % 13.3 Plt Count (130-400) x1000/uL 295 MPV (8.0-11.0) fL 9.7 Immature Gran % 0.5 Neutrophils % 72.4 Lymphocytes % 17.7 Monocytes % 8.2 Eosinophils % 0.9 Basophils % 0.3 Absolute Neutrophils (1.2-6.7) k/cumm 6.97 H Absolute Lymphocytes (1.2-3.4) k/cumm 1.70 Absolute Monocytes (0.11-0.7) k/cumm 0.79 H Absolute Eosinophils (0.0-0.7) k/cumm 0.09 Absolute Basophils (0.0-0.2) k/cumm 0.03 ESR (0-15) MM/HR 13 Sodium (136-145) mmol/L 140 Potassium (3.5-5.1) mmol/L 4.0 Chloride (98-107) mmol/L 103 Carbon Dioxide (21.0-32.0) mmol/L 30.0 Anion Gap (3-11) mmol/L 7.0 BUN (7-18) mg/dL 17 Creatinine (0.70-1.30) mg/dL 0.86 Estimated GFR/1.73 m2 (mL/min/1.73m2) >= 60.00 Glucose (70-100) mg/dL 107 H Calcium (8.5-10.1) mg/dL 8.8 Total Bilirubin (0.2-1.0) mg/dL 0.8 AST (15-37) U/L 27 ALT (12-78) U/L 56 Alkaline Phosphatase (46-116) U/L 54 C-Reactive Protein (0.0-0.3) mg/dL 0.14 Total Protein (6.4-8.2) g/dL 7.6 Albumin (3.4-5.0) g/dL 4.1
[2018-09-28] MEDS: MORPHine 10 MG/ML VIAL 2 MG IVP (15:13)
[2018-09-28] MEDS: Ondansetron 4 MG/2 ML VIAL IVP (15:21)
--- NOTE | 2018-09-28 16:15 | DI.VRAD_ITS ---
EXAM: MR Cervical Spine Without Contrast EXAM DATE/TIME: 09/28/2018 1:41 PM CLINICAL HISTORY: 43 years old, male; Pain; Neck pain; Patient HX: Neck pain since injury/ fall 1 week ago. ; Additional info: Best images obtained due to patient condition, in severe pain and difficulty breathing. TECHNIQUE: Multiplanar magnetic resonance images of the cervical spine without contrast. COMPARISON: No relevant prior studies available. FINDINGS: Vertebrae: No acute fracture. No spondylolisthesis. No abnormal bone marrow signal. DISCS/SPINAL CANAL/NEURAL FORAMINA: C2-C3: No significant disc disease. No stenosis. C3-C4: No significant disc disease. No stenosis. C4-C5: No significant disc disease. No stenosis. C5-C6: No significant disc disease. No stenosis. C6-C7: Mild disc bulge. No significant disc disease. No stenosis. C7-T1: No significant disc disease. No stenosis. Spinal cord: There is increased T2 signal in the spinal cord measuring 1.5 cm at the level of C3 and C4 vertebra. Vasculature: Expected flow voids in the vertebral arteries. Soft tissues: Unremarkable IMPRESSION: Increased T2 signal in the spinal cord measuring 1.5 cm the level of C3 and C4 vertebra. Findings suggestive of acute edema. Dictated and Authenticated by: Jesus Zaldivar MD. Ordering:KAREN ROBLES MD
--- NOTE | 2018-09-28 18:17 | DI.RAD_ITS ---
SYMPTOMS/DIAGNOSIS: SHORTNESS OF BREATH PORTABLE AP CHEST: There appear to be bilateral areas of atelectasis in the lung bases. There is poor inspiration. Otherwise, the lungs are grossly clear and cardiac size is within normal limits.
[2018-09-28 18:45] LABS: BE 1.6 mmol/L (-3-3); HCO3 28 mmol/L (22-28); pCO2 52 mmHg (34-47); pH 7.33 (7.35-7.45); sO2 61 % (94-98); tCO2 25 mmol/L (22-29)
[2018-09-28 18:49] LABS: pO2 33 mmHg (83-108)
--- NOTE | 2018-09-28 18:58 | DI.VRAD_ITS ---
EXAM: XR Chest, 1 View EXAM DATE/TIME: 09/28/2018 6:17 PM CLINICAL HISTORY: 43 years old, male; Signs and symptoms; Other: SOB TECHNIQUE: XR of the chest, 1 view. COMPARISON: No relevant prior studies available. FINDINGS: Lungs: Low lung volumes. Mild bibasilar platelike atelectasis. Pleural space: Small left pleural effusion. Heart/Mediastinum: Unremarkable. No cardiomegaly. Bones/joints: Degenerative changes of the spine. IMPRESSION: Mild bibasilar atelectasis. Small left pleural effusion. Dictated and Authenticated by: Jesus Zaldivar MD. Ordering:KAREN ROBLES MD
== END 2018-09-28 19:00 | disposition short-term general hospital (02) ==
LOC: ER 12:51
PROVIDERS: Emergency Provider Physician Assistant; PCP Nurse Practitioner Family
DX: S14.0XXA Concussion and edema of cervical spinal cord, initial encounter (principal); R53.1 Weakness; W01.0XXA Fall on same level from slipping, tripping and stumbling without subsequent striking against object, initial encounter
CPT/HCPCS: 36415; 80053; 82805; 85652; 96374; 96375; 99285; 71045; 72141; 85025; 86140; 99284; J2270; L0172

== ENCOUNTER 2023-02-07 11:08 | Outpatient (CLI) | payer BC, SELFPAY ==
--- NOTE | 2023-02-07 | DI.RAD_ITS ---
Exam(s) XR CHEST 2V PA LATERAL EXAM: XR CHEST 2V PA LATERAL CLINICAL HISTORY: cough 7 days, known Lt elevated hemidiaphragm. TECHNIQUE: 2D digital imaging was performed. COMPARISON: CR XR PORTABLE CHEST AP from 09/28/2018 FINDINGS: 2 views: Heart size is normal. The mediastinum is not widened. Elevated right hemidiaphragm again noted with increased markings in the right lung parallel/just abov e the elevated right hemidiaphragm, similar in appearance to 2018. Probably chronic atelectasis. Th herbert are in the right middle lobe. No other pulmonary findings. No obvious pleural effusions. IMPRESSION: Chronic increased markings right middle lobe above elevated right hemidiaphragm, probably chronic ate lectasis. Correlation with clinical findings recommended. There are no pleural effusions. DATA REPOSITORY: RADIATION DOSE DELIVERED:
--- NOTE | 2023-02-07 11:50 | DI.VRAD_ITS ---
PROCEDURE INFORMATION: Exam: XR Chest Exam date and time: 02/07/2023 11:43 AM Age: 47 years old Clinical indication: Patient HX: Cough for several days TECHNIQUE: Imaging protocol: Radiologic exam of the chest. Views: 2 views. COMPARISON: SC XR PORTABLE CHEST AP 09/28/2018 6:29 PM FINDINGS: Lungs: Linear fibrosis bronchitis or atelectasis inferior right middle lobe. No lobar consolidations. Pleural spaces: Unremarkable. No pleural effusion. No pneumothorax. Heart/Mediastinum: The heart and aorta are normal in size. Diaphragm: Chronic elevation of the right diaphragm. Bones/joints: Unremarkable. IMPRESSION: Linear findings in the inferior portion of the right middle lobe may be due to atelectasis, bronchitis or fibrosis. Dictated and Authenticated by: Hugo Marquez MD. Ordering:VAHE Davis MD
== END 2023-02-07 11:28 ==
PROVIDERS: PCP Nurse Practitioner Family; Visit Provider Physician Assistant Medical
DX: R05.3 Chronic cough (principal); J98.11 Atelectasis; J98.6 Disorders of diaphragm; R09.89 Other specified symptoms and signs involving the circulatory and respiratory systems
CPT/HCPCS: 71046

== ENCOUNTER 2023-02-07 12:51 | Outpatient (REF) | payer BC, SELFPAY ==
[2023-02-08 23:42] LABS: COVID-19 RT-PCR UVMMC Result Negative (Negative)
== END 2023-02-07 12:52 | disposition home or self-care (01) ==
LOC: LBN 12:51
PROVIDERS: PCP Nurse Practitioner Family; Visit Provider Physician Assistant Medical
DX: R09.89 Other specified symptoms and signs involving the circulatory and respiratory systems (principal); Z20.822 Contact with and (suspected) exposure to COVID-19
CPT/HCPCS: U0003